=== PATIENT | male | born 1965 | race African-American/Black ===

== ENCOUNTER 2017-03-28 13:31 | Inpatient (IN) | payer OTHER ==
[~2017-03-28] VITALS: Ht 195.6 cm; Wt 72.5 kg
[2017-03-28 13:48] VITALS: BP 114/102; PULSE 98; RESP 18; TEMP 98.7; O2SAT 95
[2017-03-28 14:22] LABS: BASOPHIL # 0.1 TH/MM3 (0-0.2); BASOPHIL % 0.9 % (0.0-2.0); EOSINOPHIL % 0.4 % (0.0-4.0); HEMATOCRIT 41.4 % (39.0-51.0); HEMOGLOBIN 14.5 GM/DL (13.0-17.0); LYMPH % 28.8 % (9.0-44.0); MEAN CELL VOLUME 96.8 FL (80.0-100.0); MEAN CORPUSCULAR HEMOGLOBIN 33.9 PG (27.0-34.0); MEAN PLATELET VOLUME 6.7 FL (7.0-11.0); MONO % 12.6 % (0.0-8.0); MONOCYTE # 0.9 TH/MM3 (0-0.9); NEUT % 57.3 % (16.0-70.0); PLATELET COUNT 127 TH/MM3 (150-450); RED BLOOD COUNT 4.28 MIL/MM3 (4.50-5.90); RED CELL DISTRIBUTION WIDTH 15.8 % (11.6-17.2)
--- NOTE | 2017-03-28 15:26 | PD ---
HPI Chief Complaint: Psychiatric Symptoms Time Seen by Provider: 15:26 Travel History International Travel<30 days: No Contact w/Intl Traveler<30days: No Traveled to known affect area: No History of Present Illness HPI 51-year-old -[place] male brought in under the [place] act with suicidal ideation. Patient states he had a seizure on September 04 of this past year and has since been out of work. Patient has history of bipolar disorder states he has been unable to take any of his meds secondary to being out of work due to the seizure. Patient was hospitalized during that time for 6 days. He was supposed to follow-up with a neurologist but never did due to his lack of funds and insurance. Patient now is complaining of left-sided head, facial, and neck pain. He states he probably has a dental abscess. Patient states he has not slept for several weeks, and complains of generalized fatigue and does not feel he can take it anymore. Patient denies any specific neurological deficits other than his headache. Patient states he has felt feverish off and on for the past week. Patient denies difficulty swallowing. And has had bilateral ear pain. He denies sinus tenderness to palpation [facility] Social History Alcohol Use: Yes Tobacco Use: Yes Substance Use: Yes Allergies-Medications (Allergen,Severity, Reaction): Coded Allergies: No Known Allergies (Unverified , 03/28/17) Reported Meds & Prescriptions Reported Meds & Active Scripts Active Reported Seroquel (Quetiapine Fumarate) 300 Mg Tab 300 Mg PO DAILY Review of Systems Except as stated in HPI: all other systems reviewed are Neg General / Constitutional: Positive: Fever (Reports off and on for 2 weeks.) Eyes: No: Diploplia, Blurred Vision, Photophobia, Drainage, Redness, Foreign Body Sensation, Pain, Tearing, Blind Spots, Visual changes, Blindness HENT: Positive: Headaches, Congestion, Dental Difficulties, Earache, No: Vertigo, Lightheadedness, Sore Throat, Rhinitis, Rhinorrhea, Nosebleed, Neck Stiffness, Neck Pain, Gingival Bleeding, Ear Discharge Cardiovascular: No: Chest Pain or Discomfort Respiratory: No: Cough, Shortness of Breath, Wheezing Gastrointestinal: No: Nausea, Vomiting, Diarrhea, Abdominal Pain Genitourinary: No: Dysuria Musculoskeletal: No: Pain Skin: No Rash Neurologic: No: Weakness Psychiatric: Positive: Depression, Suicidal Ideations, Mood Disorder, No: Anxiety, Substance Abuse, Homicidal Ideation Endocrine: No: Polydipsia Hematologic/Lymphatic: No: Easy Bruising Physical Exam Narrative GENERAL: Patient appears somewhat anxious and pressured speech. He appears in moderate discomfort. SKIN: Warm and dry. Normal color. Normal turgor. No rash. HEAD: Atraumatic. Normocephalic. EYES: Pupils equal and round. No scleral icterus. No injection or drainage. ENT: No nasal bleeding or discharge. Mucous membranes pink and moist. No obvious swelling. Pharynx is clear. Airways patent. No Bay's angina. Patient is very poor dental health, with multiple missing teeth and tenderness with palpation along the trigeminal nerve root. TMs are clear bilaterally. No sinus tenderness to palpation. NECK: Trachea midline. Supple and nontender. CARDIOVASCULAR: Regular rate and rhythm. RESPIRATORY: No accessory muscle use. Clear to auscultation. Breath sounds equal bilaterally. GASTROINTESTINAL: Abdomen soft, non-tender, nondistended. Hepatic and splenic margins not palpable. MUSCULOSKELETAL: Extremities without clubbing, cyanosis, or edema. No obvious deformities. NEUROLOGICAL: Awake and alert. No obvious cranial nerve deficits. Motor grossly within normal limits. Five out of 5 muscle strength in the arms and legs. Normal speech. PSYCHIATRIC: Appropriate mood and affect; insight and judgment normal. Data Data Last Documented VS Vital Signs Date Time Temp Pulse Resp B/P (MAP) Pulse Ox O2 Delivery O2 Flow Rate FiO2 03/28/17 17:12 16 03/28/17 15:45 98.1 78 156/100 (118) 98 Room Air Orders Orders Complete Blood Count With Diff (03/28/17 13:51) Comprehensive Metabolic Panel (03/28/17 13:51) Psych Screen (03/28/17 13:51) Drug Screen, Random Urine (03/28/17 13:51) Alcohol (Ethanol) (03/28/17 13:51) Ct Brain W/O Iv Contrast(Rout) (03/28/17 15:36) Iv Access Insert/Monitor (03/28/17 15:36) Ecg Monitoring (03/28/17 15:36) Oximetry (03/28/17 15:36) Morphine Inj (Morphine Inj) (03/28/17 15:45) Ondansetron Inj (Zofran Inj) (03/28/17 15:45) Ampicillin-Sulbactam Inj (Unasyn Inj) (03/28/17 15:45) Sodium Chlor 0.9% 1000 Ml Inj (Ns 1000 M (03/28/17 15:36) Sodium Chloride 0.9% Flush (Ns Flush) (03/28/17 15:45) Ketorolac Inj (Toradol Inj) (03/28/17 15:45) Labs Laboratory Tests Test 03/28/17 14:00 03/28/17 14:20 White Blood Count 7.0 TH/MM3 Red Blood Count 4.28 MIL/MM3 Hemoglobin 14.5 GM/DL Hematocrit 41.4 % Mean Corpuscular Volume 96.8 FL Mean Corpuscular Hemoglobin 33.9 PG Mean Corpuscular Hemoglobin Concent 35.0 % Red Cell Distribution Width 15.8 % Platelet Count 127 TH/MM3 Mean Platelet Volume 6.7 FL Neutrophils (%) (Auto) 57.3 % Lymphocytes (%) (Auto) 28.8 % Monocytes (%) (Auto) 12.6 % Eosinophils (%) (Auto) 0.4 % Basophils (%) (Auto) 0.9 % Neutrophils # (Auto) 4.0 TH/MM3 Lymphocytes # (Auto) 2.0 TH/MM3 Monocytes # (Auto) 0.9 TH/MM3 Eosinophils # (Auto) 0.0 TH/MM3 Basophils # (Auto) 0.1 TH/MM3 CBC Comment DIFF FINAL Differential Comment Blood Urea Nitrogen 4 MG/DL Creatinine 0.97 MG/DL Random Glucose 110 MG/DL Total Protein 8.5 GM/DL Albumin 3.4 GM/DL Calcium Level 8.7 MG/DL Alkaline Phosphatase 68 U/L Aspartate Amino Transf (AST/SGOT) 51 U/L Alanine Aminotransferase (ALT/SGPT) 22 U/L Total Bilirubin 0.3 MG/DL Sodium Level 137 MEQ/L Potassium Level 4.1 MEQ/L Chloride Level 105 MEQ/L Carbon Dioxide Level 23.4 MEQ/L Anion Gap 9 MEQ/L Estimat Glomerular Filtration Rate 82 ML/MIN Ethyl Alcohol Level 356 MG/DL Urine Opiates Screen NEG Urine Barbiturates Screen NEG Urine Amphetamines Screen NEG Urine Benzodiazepines Screen NEG Urine Cocaine Screen NEG Urine Cannabinoids Screen POS MDM Medical Decision Making Medical Screen Exam Complete: Yes Emergency Medical Condition: Yes Medical Record Reviewed: Yes Differential Diagnosis Reported history of seizure disorder. Bipolar disorder. Moran act. Suicidal ideation. Dental pain. Dental abscess. Headache. Narrative Course Patient appears in discomfort but medically stable at time of exam. CBC is unremarkable. Chemistry shows BUN of 4, GFR 82, random glucose 110, AST is 51, total protein 2.5 otherwise unremarkable. Toxicology is positive for marijuana and alcohol level is 356. CT scan of the head is ordered to rule out intracranial process versus abscess. This is negative for acute process. IV access is obtained the patient is given 1000 mL normal saline bolus as well as 3 g Unasyn IV, as well as 2 mg morphine IV and 4 mg Zofran IV. Patient is medically cleared for psychiatric evaluation. Diagnosis Primary Impression: Pain due to dental caries Additional Impression: Medical clearance for psychiatric admission Disposition: 07 AGAINST MEDICAL ADVICE Condition: Stable Kike Morales Mar 28, 2017 15:26
[2017-03-28 15:28] LABS: ALBUMIN 3.4 GM/DL (3.4-5.0); ALKALINE PHOSPHATASE 68 U/L (45-117); ALT (GPT) 22 U/L (12-78); AST (GOT) 51 U/L (15-37); BICARBONATE 23.4 MEQ/L (21.0-32.0); BLOOD UREA NITROGEN 4 MG/DL (7-18); CALCIUM 8.7 MG/DL (8.5-10.1); CHLORIDE 105 MEQ/L (98-107); CREATININE 0.97 MG/DL (0.60-1.30); GLOMERULAR FILTRATION RATE 82 ML/MIN (>89); GLUCOSE,RANDOM 110 MG/DL (74-106); SODIUM (NA) 137 MEQ/L (136-145); TOTAL BILIRUBIN ADULT 0.3 MG/DL (0.2-1.0); TOTAL PROTEIN 8.5 GM/DL (6.4-8.2)
[2017-03-28] MEDS ORDERED: SODIUM CHLOR 0.9% 1000 ML INJ 1,000 ML IV SCH (15:36)
[2017-03-28 15:45] VITALS: BP 156/100; PULSE 78; PULSE 82; RESP 18; TEMP 98.1; O2SAT 98
[2017-03-28] MEDS ORDERED: AMPICILLIN-SULBACTAM INJ 3 GM in SODIUM CHLORIDE 0.9% INJ 100 ML IV ONE (15:45)
[2017-03-28] MEDS ORDERED: SODIUM CHLORIDE 0.9% FLUSH 10 ML FLUSH IV FLUSH PRN (15:45)
[2017-03-28] MEDS ORDERED: KETOROLAC TROMETHAMINE 30 MG/ML (IVP) VIAL IVP ONE (15:45)
[2017-03-28] MEDS ORDERED: MORPHINE SULFATE 4 MG/ML INJ IV PUSH ONE (15:45)
[2017-03-28] MEDS ORDERED: ONDANSETRON HCL 4 MG/2 ML VIAL IVP ONE (15:45)
[2017-03-28] MEDS ORDERED: SERO300T PO (16:35)
--- NOTE | 2017-03-28 16:37 | RADRPT ---
EXAM DATE/TIME: 03/28/2017 16:12 [facility] COMPARISON: No previous studies available for comparison. INDICATIONS : Patient complains of headache. RADIATION DOSE: 56.35 CTDIvol (mGy) MEDICAL HISTORY : Seizures. SURGICAL HISTORY : None. ENCOUNTER: Initial ACUITY: 1 day PAIN SCALE: 10/10 LOCATION: cranial TECHNIQUE: Multiple contiguous axial images were obtained of the head. Using automated exposure control and adj ustment of the mA and/or kV according to patient size, radiation dose was kept as low as reasonably a chievable to obtain optimal diagnostic quality images. DICOM format image data is available electro nically for review and comparison. FINDINGS: CEREBRUM: The ventricles are normal for age. No evidence of midline shift, mass lesion, hemorrhage or acute in farction. No extra-axial fluid collections are seen. POSTERIOR FOSSA: The cerebellum and brainstem are intact. The 4th ventricle is midline. The cerebellopontine angle i s unremarkable. EXTRACRANIAL: The visualized portion of the orbits is intact. SKULL: The calvaria is intact. No evidence of skull fracture. CONCLUSION: Normal examination. Abelardo Everett Jr., MD on March 28, 2017 at 16:33 Board Certified Radiologist. This report was verified electronically.
[2017-03-28 18:35] VITALS: BP 146/72; PULSE 78; RESP 18; O2SAT 98
[2017-03-28] MEDS ORDERED: LORazepam 2 MG/ML VIAL IV PUSH PRN ×4 (20:00)
[2017-03-28] MEDS ORDERED: FLUMAZENIL 0.5 MG/5 ML VIAL IV PUSH PRN (20:00)
[2017-03-28] MEDS ORDERED: LORazepam 1 MG TAB PO PRN (20:00)
[2017-03-28] MEDS: LORazepam 2 MG TAB PO PRN (21:36)
[2017-03-29] MEDS ORDERED: AMOX500C PO (00:24)
[2017-03-29] MEDS ORDERED: DICL50TA3 PO (00:24)
[2017-03-29] MEDS ORDERED: IBUPROFEN 600 MG TAB PO ONE (00:30)
[2017-03-29] MEDS ORDERED: AMOXICILLIN (TRIHYDRATE) 500 MG CAP PO ONE (00:30)
[2017-03-29] MEDS ORDERED: AMOXICILLIN (TRIHYDRATE) 250 MG CAP PO ONE (00:45)
[2017-03-29 01:04] VITALS: BP 148/90; PULSE 101; RESP 18; O2SAT 96
[2017-03-29 05:57] VITALS: BP 158/88; PULSE 88; RESP 18; O2SAT 98
[2017-03-29] MEDS: IBUPROFEN 600 MG TAB PO SCH ×3 (06:00→18:43)
[2017-03-29 08:00] VITALS: BP 167/107; PULSE 93; RESP 18; TEMP 98.4; O2SAT 97
[2017-03-29] MEDS ORDERED: AMOXICILLIN (TRIHYDRATE) 500 MG CAP PO SCH (09:00)
[2017-03-29] MEDS: AMOXICILLIN (TRIHYDRATE) 250 MG CAP PO SCH ×2 (10:08→19:18)
[2017-03-29] MEDS: LORazepam 2 MG TAB PO PRN ×2 (10:31→22:25)
[2017-03-29 11:19] VITALS: BP 137/84; PULSE 92; RESP 18; TEMP 98.8; O2SAT 98
[2017-03-29] MEDS ORDERED: ACETAMINOPHEN/HYDROcodone 325 MG/5 MG TAB PO ONE (11:45)
[2017-03-29 18:11] VITALS: BP 161/91; PULSE 84; RESP 18; O2SAT 99
[2017-03-29] MEDS ORDERED: LORazepam 2 MG/ML VIAL IM PRN (20:45)
[2017-03-29] MEDS ORDERED: LORazepam 1 MG TAB PO PRN (20:45)
[2017-03-29] MEDS ORDERED: MAGNESIUM HYDROXIDE SUSP 30 ML CUP PO PRN (20:45)
[2017-03-29] MEDS ORDERED: ALUMINUM/MAGNESIUM/SIMETH 30 ML CUP PO PRN (20:45)
[2017-03-29] MEDS: REMOVE OLD NICOTINE PATCH T-DERMAL SCH (21:00)
[2017-03-29] MEDS: ACETAMINOPHEN 325 MG TAB PO PRN (22:32)
[2017-03-29 23:14] VITALS: BP 153/105; PULSE 78; RESP 16; TEMP 100; O2SAT 95
[2017-03-30] MEDS: AMOXICILLIN (TRIHYDRATE) 250 MG CAP PO SCH (01:21)
[2017-03-30] MEDS: IBUPROFEN 600 MG TAB PO SCH ×4 (01:21→17:47)
[2017-03-30 05:51] VITALS: BP 130/88; PULSE 81; RESP 16; TEMP 98.5; O2SAT 94
[2017-03-30 06:51] LABS: BICARBONATE 28.3 MEQ/L (21.0-32.0); BLOOD UREA NITROGEN 5 MG/DL (7-18); CALCIUM 8.9 MG/DL (8.5-10.1); CHLORIDE 100 MEQ/L (98-107); CHOLESTEROL 212 MG/DL (120-200); CREATININE 0.89 MG/DL (0.60-1.30); GLOMERULAR FILTRATION RATE 110 ML/MIN (>89); GLUCOSE,RANDOM 82 MG/DL (74-106); SODIUM (NA) 135 MEQ/L (136-145)
[2017-03-30 07:01] LABS: CHOLESTEROL/ HDL RATIO 1.89 RATIO; FREE T4 1.27 NG/DL (0.76-1.46); LDL CHOLESTEROL 82 MG/DL (0-99); TRIGLYCERIDES 91 MG/DL (42-150)
[2017-03-30] MEDS ORDERED: POTASSIUM CHLORIDE 10 MEQ CONTROLLED RELEASE TAB PO ONE (07:45)
[2017-03-30] MEDS ORDERED: QUEtiapine FUMARATE 300 MG TAB PO SCH (09:00)
[2017-03-30] MEDS: AMOXICILLIN (TRIHYDRATE) 500 MG CAP PO SCH ×2 (09:00→13:00)
[2017-03-30] MEDS: DICLOFENAC SODIUM 50 MG DELAYED RELEASE TAB PO SCH ×2 (09:44→13:51)
[2017-03-30] MEDS: NICOTINE 21 MG/24 HR PATCH T-DERMAL SCH (09:49)
[2017-03-30] MEDS ORDERED: hydrOXYzine HCL 50 MG TAB PO PRN (12:00)
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
--- NOTE | 2017-03-30 15:42 | PD.CONS ---
HPI Service [facility] Hospitalists Consult Requested By Psychiatric services Reason for Consult Medical management Primary Care Physician No Primary Care Physician Diagnoses: History of Present Illness This is a 51-year-old -[place] male with past medical history significant for hypertension and history of seizure September 04 of last year who presented to [facility] ED under [place] act for suicidal ideation and has been admitted to the inpatient psychiatric unit. Hospitalist services have been consulted for medical management. Patient is complaining of left-sided tooth pain which has improved since receiving antibiotics since his admission. He denies any fever or chills. He also reports a mild headache. He denies any chest pain or shortness of breath. He denies any nausea, vomiting or abdominal pain. Patient states he had a seizure while at work last year and was supposed to follow-up with a neurologist but was unable to due to losing his job and insurance benefits. He states that he continued to have seizure activity for about a month but has not had any since. He received care for the seizure at [facility]. He was not discharged on any seizure medication. He states he was never told why he had the seizure. Review of Systems Except as stated in HPI: all other systems reviewed are Neg Past Family Social History Allergies: Coded Allergies: No Known Allergies (Unverified , 03/28/17) Past Medical History Hypertension History of seizures Past Surgical History Appendectomy Reported Medications Seroquel (Quetiapine Fumarate) 300 Mg Tab 300 Mg PO DAILY Active Ordered Medications Current Medications Medications (Trade) Dose Ordered Sig/Ana Cristina Route Start Time Stop Time Status Last Admin (Romazicon Inj) 0.2 mg Q1M PRN IV PUSH 03/28/17 20:00 (Ativan) 1 mg Q4H PRN PO 03/28/17 20:00 03/29/17 03:09 (Ativan Inj) 1 mg Q4H PRN IV PUSH 03/28/17 20:00 (Ativan) 2 mg Q2H PRN PO 03/28/17 20:00 03/29/17 22:25 (Ativan Inj) 2 mg Q2H PRN IV PUSH 03/28/17 20:00 (Ativan Inj) 2 mg Q1H PRN IV PUSH 03/28/17 20:00 (Ativan Inj) 2 mg Q15M PRN IV PUSH 03/28/17 20:00 (Motrin) 600 mg Q6HR PO 03/29/17 06:00 03/30/17 13:52 (Tylenol) 650 mg Q4H PRN PO 03/29/17 20:45 03/29/17 22:32 (Milk Of Magnesia Liq) 30 ml DAILY PRN PO 03/29/17 20:45 (Mag-Al Plus Susp Liq) 30 ml Q6H PRN PO 03/29/17 20:45 (Habitrol 21 Mg Patch.24 Hr) 1 patch DAILY T-DERMAL 03/30/17 09:00 03/30/17 09:49 Miscellaneous Information 1 HS T-DERMAL 03/29/17 21:00 (Trimox) 500 mg TID PO 03/30/17 09:00 03/30/17 13:00 (Voltaren Dr) 50 mg TID PO 03/30/17 09:00 03/30/17 13:51 (Atarax) 50 mg Q6H PRN PO 03/30/17 12:00 (SEROquel) 50 mg HS PO 03/30/17 21:00 (Vitamin B1) 100 mg DAILY PO 03/31/17 09:00 (Folate) 1 mg DAILY PO 03/31/17 09:00 Family History Hypertension, coronary artery disease, cancer Social History Patient reports tobacco use of a pack per day starting when he was a teenager. He admits to daily alcohol use of 4-6 beers a day. He admits to marijuana use. Denies any IV drug or cocaine use. Physical Exam Vital Signs Vital Signs Date Time Temp Pulse Resp B/P (MAP) Pulse Ox O2 Delivery O2 Flow Rate FiO2 03/30/17 05:51 98.5 81 16 130/88 (102) 94 03/29/17 23:14 100.0 78 16 153/105 (121) 95 03/29/17 19:32 03/29/17 18:11 84 18 161/91 (114) 99 Room Air Physical Exam GENERAL: This is a well-nourished, well-developed -[place] patient, in no apparent distress. Awake and alert. Calm and pleasant. SKIN: No rashes, ecchymoses or lesions. Cool and dry. HEAD: Atraumatic. Normocephalic. No temporal or scalp tenderness. EYES: Pupils equal round and reactive. Extraocular motions intact. No scleral icterus. No injection or drainage. ENT: Nose without bleeding or purulent drainage. Throat without erythema, tonsillar hypertrophy or exudate. Uvula midline. Airway patent. Extremely poor dentition noted. Tenderness to palpation over left lower jaw. NECK: Trachea midline. No lymphadenopathy. Supple, nontender, no meningeal signs. CARDIOVASCULAR: Tachycardic without murmurs, gallops, or rubs. RESPIRATORY: Coarse breath sounds with diffuse wheezing. GASTROINTESTINAL: Abdomen soft, non-tender, nondistended. No hepato-splenomegaly , or palpable masses. No guarding. MUSCULOSKELETAL: Extremities without clubbing, cyanosis, or edema. No joint tenderness, effusion, or edema noted. No calf tenderness. NEUROLOGICAL: Awake and alert. Cranial nerves II through XII grossly intact. Motor and sensory grossly within normal limits. Five out of 5 muscle strength in all muscle groups. Normal speech. Laboratory Laboratory Tests Test 03/29/17 17:00 03/30/17 05:00 Stool C. difficile Toxin (PCR) NEGATIVE Stl C. difficile Toxin Epiderm 027 PRESUMPTIVE NEGATIVE Blood Urea Nitrogen 5 Creatinine 0.89 Random Glucose 82 Calcium Level 8.9 Sodium Level 135 Potassium Level 3.4 Chloride Level 100 Carbon Dioxide Level 28.3 Anion Gap 7 Estimat Glomerular Filtration Rate 110 Triglycerides Level 91 Cholesterol Level 212 LDL Cholesterol 82 HDL Cholesterol 112.0 Cholesterol/HDL Ratio 1.89 Free Thyroxine 1.27 Thyroid Stimulating Hormone 3rd Gen 1.850 Result Diagram: 03/28/17 1400 03/30/17 0500 Imaging Last Impressions Head CT 03/28/17 1536 Signed Impressions: Service Date/Time: Tuesday, March 28, 2017 16:12 - CONCLUSION: Normal examination. Abelardo Everett Jr., MD Assessment and Plan Assessment and Plan 51-year-old -[place] male with past medical history significant for hypertension and history of seizure September 04 of last year who presented to [facility] ED under [place] act for suicidal ideation and has been admitted to the inpatient psychiatric unit. Hospitalist services have been consulted for medical management. Suicidal ideation, under [place] act Depression Medical management per psychiatric team Dental abscess Extremely poor dentition d/c amoxicillin, start augmentin Recommend patient follow-up with dentist as outpatient Monitor Suspected COPD exacerbation Ongoing tobaccoism Obtain chest x-ray DuoNeb scheduled Continue to monitor respiratory status Discussed smoking cessation Hypertension Currently controlled off of medications Clonidine as needed Monitor BP and adjust treatment accordingly Hypokalemia PO repletion ordered A.m. labs to monitor response History of seizures, specifics unknown ?EtOH withdrawal seizure Patient reports hospitalization August of last year at [facility]. Have requested medical records for review. Patient not prescribed any antiseizure medication at the time of his discharge No recent seizure activity Seizure precautions Alcohol abuse [facility] protocol Monitor for signs and symptoms of withdrawal Thiamine/folate/multivitamin daily Thrombocytosis mild check B12 and folate levels monitor DVT prophylaxis Patient is ambulatory Thank you very kindly for this consultation. Will follow along with you. Discussed Condition With Patient, Che Donaldson Mar 30, 2017 15:42
[2017-03-30 16:15] LABS: HEMOGLOBIN A1C 5.6 % (4.3-6.0)
[2017-03-30 17:13] VITALS: PULSE 86; RESP 17; TEMP 98.4; O2SAT 99
--- NOTE | 2017-03-30 20:22 | RADRPT ---
EXAM DATE/TIME: 03/30/2017 19:52 [place] COMPARISON: No previous studies available for comparison. INDICATIONS : Chest pain and shortness of breath. MEDICAL HISTORY : Seizures, Chronic bronchitis. SURGICAL HISTORY : None. ENCOUNTER: Initial ACUITY: 2 days PAIN SCORE: 8/10 LOCATION: Bilateral chest FINDINGS: PA and lateral views of the chest demonstrate the lungs to be symmetrically aerated without evidence of mass, infiltrate or effusion. The cardiomediastinal contours are unremarkable. Osseous structure s are intact. CONCLUSION: No acute disease. Mateo Amaro MD on March 30, 2017 at 20:20 Board Certified Radiologist. This report was verified electronically.
[2017-03-30] MEDS ORDERED: QUEtiapine FUMARATE 100 MG TAB PO SCH (21:00)
[2017-03-30] MEDS: REMOVE OLD NICOTINE PATCH T-DERMAL SCH (21:13)
[2017-03-30] MEDS: RESP: ALBUTEROL 2.5 MG/IPRATROPIUM 0.5 MG NEB (SCH) NEB (21:55)
[2017-03-30] MEDS: AMOXICILLIN/CLAVULANATE K 500 MG TAB PO SCH (22:00)
[2017-03-31] MEDS: IBUPROFEN 600 MG TAB PO SCH
[2017-03-31 05:59] VITALS: BP 124/82; PULSE 76; RESP 18; TEMP 98.4; O2SAT 98
[2017-03-31] MEDS: AMOXICILLIN/CLAVULANATE K 500 MG TAB PO SCH ×3 (06:00→22:00)
[2017-03-31] MEDS: RESP: ALBUTEROL 2.5 MG/IPRATROPIUM 0.5 MG NEB (SCH) NEB ×2 (07:38→12:40)
[2017-03-31] MEDS: NICOTINE 21 MG/24 HR PATCH T-DERMAL SCH (09:00)
[2017-03-31] MEDS: FOLIC ACID 1 MG TAB PO SCH (09:21)
[2017-03-31] MEDS: THIAMINE HCL 100 MG TAB PO SCH (09:21)
[2017-03-31] MEDS: MULTIVITAMIN TAB PO SCH (09:21)
[2017-03-31] MEDS: ACETAMINOPHEN 325 MG TAB PO PRN (09:23)
[2017-03-31 10:04] LABS: AUTOMATED NEUTROPHIL # 2.3 TH/MM3 (1.8-7.7); BASOPHIL % 0.7 % (0.0-2.0); EOSINOPHIL # 0.2 TH/MM3 (0-0.4); EOSINOPHIL % 3.6 % (0.0-4.0); HEMATOCRIT 38.6 % (39.0-51.0); HEMOGLOBIN 13.1 GM/DL (13.0-17.0); LYMPH % 32.4 % (9.0-44.0); LYMPHOCYTE # 1.6 TH/MM3 (1.0-4.8); MEAN CELL VOLUME 97.1 FL (80.0-100.0); MEAN CORPUSCULAR HEMOGLOBIN 32.9 PG (27.0-34.0); MEAN CORPUSCULAR HGB CONC 33.9 % (32.0-36.0); MEAN PLATELET VOLUME 7.7 FL (7.0-11.0); MONO % 16.1 % (0.0-8.0); MONOCYTE # 0.8 TH/MM3 (0-0.9); NEUT % 47.2 % (16.0-70.0); PLATELET COUNT 99 TH/MM3 (150-450); RED BLOOD COUNT 3.97 MIL/MM3 (4.50-5.90); RED CELL DISTRIBUTION WIDTH 15.3 % (11.6-17.2); WHITE BLOOD COUNT 4.8 TH/MM3 (4.0-11.0)
[2017-03-31 10:53] LABS: ALBUMIN 2.7 GM/DL (3.4-5.0); ALKALINE PHOSPHATASE 65 U/L (45-117); ALT (GPT) 73 U/L (12-78); AST (GOT) 112 U/L (15-37); BICARBONATE 29.7 MEQ/L (21.0-32.0); BLOOD UREA NITROGEN 13 MG/DL (7-18); CALCIUM 9.3 MG/DL (8.5-10.1); CHLORIDE 100 MEQ/L (98-107); CREATININE 1.04 MG/DL (0.60-1.30); GLOMERULAR FILTRATION RATE 92 ML/MIN (>89); GLUCOSE,RANDOM 89 MG/DL (74-106); SODIUM (NA) 135 MEQ/L (136-145); TOTAL BILIRUBIN ADULT 0.4 MG/DL (0.2-1.0); TOTAL PROTEIN 7.3 GM/DL (6.4-8.2)
--- NOTE | 2017-03-31 12:15 | HHI.PYPN ---
Subjective Chief Complaint: Depression, SI Remarks Patient seen and examined with nurse. Chart reviewed. CIWA max last 24 hours = 0. Case discussed with nursing staff. Case discussed in treatment team. On my examination today, the patient reports that he was in a bad mood this morning but this is starting to improve. He reports hearing voices calling his name but denies any other hallucinatory material. Sleep remains poor. He endorses vague suicidal ideation. Denies side effects from medications. Complains of dental pain but otherwise has no physical complaints. He would like to titrate Seroquel to improve sleep quality and notes that he has taken as much as 300 mg at bedtime in the past. Review of Systems Except as stated in HPI: all other systems reviewed are Neg Mental Status Examination Appearance: Disheveled Consciousness: Alert Orientation: x4 Motor Activity: Other (no motor abnormalities noted) Speech: Unremarkable Language: Adequate Fund of Knowledge: Adequate Attention and Concentration: Adequate Memory: Unremarkable Mood: Other (remains a little dysphoric) Affect: Blunt Thought Process & Associations: Intact Thought Content: Appropriate Hallucination Type: Auditory (as noted above. No CAH.) Delusion Type: None Suicidal Ideation: Yes (vague) Suicidal Plan: No Suicidal Intention: No (no reported urge to hurt himself on the inpatient psychiatric unit) Homicidal Ideation: No Homicidal Plan: No Homicidal Intention: No Insight: Fair Judgment: Impulsive Mental Status Exam Remarks no signs of withdrawal noted. Results Labs Test 03/31/17 09:47 White Blood Count 4.8 TH/MM3 Red Blood Count 3.97 MIL/MM3 Hemoglobin 13.1 GM/DL Hematocrit 38.6 % Mean Corpuscular Volume 97.1 FL Mean Corpuscular Hemoglobin 32.9 PG Mean Corpuscular Hemoglobin Concent 33.9 % Red Cell Distribution Width 15.3 % Platelet Count 99 TH/MM3 Mean Platelet Volume 7.7 FL Neutrophils (%) (Auto) 47.2 % Lymphocytes (%) (Auto) 32.4 % Monocytes (%) (Auto) 16.1 % Eosinophils (%) (Auto) 3.6 % Basophils (%) (Auto) 0.7 % Neutrophils # (Auto) 2.3 TH/MM3 Lymphocytes # (Auto) 1.6 TH/MM3 Monocytes # (Auto) 0.8 TH/MM3 Eosinophils # (Auto) 0.2 TH/MM3 Basophils # (Auto) 0.0 TH/MM3 CBC Comment AUTO DIFF Differential Comment AUTO DIFF CONFIRMED Platelet Estimate LOW Platelet Morphology Comment ENLARGED Blood Urea Nitrogen 13 MG/DL Creatinine 1.04 MG/DL Random Glucose 89 MG/DL Total Protein 7.3 GM/DL Albumin 2.7 GM/DL Calcium Level 9.3 MG/DL Alkaline Phosphatase 65 U/L Aspartate Amino Transf (AST/SGOT) 112 U/L Alanine Aminotransferase (ALT/SGPT) 73 U/L Total Bilirubin 0.4 MG/DL Sodium Level 135 MEQ/L Potassium Level 4.1 MEQ/L Chloride Level 100 MEQ/L Carbon Dioxide Level 29.7 MEQ/L Anion Gap 5 MEQ/L Estimat Glomerular Filtration Rate 92 ML/MIN Labs reviewed. Worsened thrombocytopenia noted, although this is perhaps dilutional as all cell lines decreased. Vitals/IOs Vital Signs Date Time Temp Pulse Resp B/P (MAP) Pulse Ox O2 Delivery O2 Flow Rate FiO2 03/31/17 05:59 98.4 76 18 124/82 (96) 98 03/29/17 18:11 Room Air Intake and Output 03/31/17 03/31/17 04/01/17 08:00 16:00 00:00 Intake Total 240 ml Balance 240 ml Assessment & Plan Problem List: (1) Adjustment disorder with mixed anxiety and depressed mood ICD Codes: F43.23 - Adjustment disorder with mixed anxiety and depressed mood (2) Alcohol dependence ICD Codes: F10.20 - Alcohol dependence, uncomplicated Assessment & Plan Titrate Seroquel over the weekend to target ongoing symptoms, interval dose target 200 mg at bedtime. R/B/A for med change discussed with patient. Hospitalist input noted and appreciated. Continue other medications and care as ordered. Justification for Cont. Inpt. Medication changes. Monitoring for impairment and safety. Risk for decompensation and less restrictive environment. Discharge Planning Pending psychiatric stabilization. Request HC Surrog/Guard Advoc?: No Andres Dempsey MD Mar 31, 2017 12:15
--- NOTE | 2017-03-31 14:40 | PD.TTN ---
Patient Problems 1. Discharge planning 2. Medication compliance 3. Knowledge deficit 4. Lack of coping skills Progress Toward Goals Provider Present: Dr. Isha Dempsey Provider Input: 03/31/17 patient was admitted yesterday and started on Seroquel Psychiatric Counselors Present: Tamara Aviles LCSW, Dhiraj Traylor Jr., [facility] Psych Therapist Input: 03/31/17 patient is new Group Spec/RT/OT/PICHARDO Present: KYLEE Eisenberg Group Spec/RT/OT/PICHARDO Input: 03/31/15 has not attended any groups yet Tamara Aviles LCSW Mar 31, 2017 14:40
[2017-03-31] MEDS ORDERED: RESP: ALBUTEROL 2.5 MG/IPRATROPIUM 0.5 MG NEB (PRN) NEB (14:45)
--- NOTE | 2017-03-31 14:51 | HHI.PR ---
Subjective Remarks Follow-up on patient with dental abscess. Patient seen and examined. Patient complains of pain with chewing despite being on soft diet. He is requesting to have his teeth removed. Discussed with patient we do not have those services available at our facility and he will need follow-up with a dentist as an outpatient. He denies any fever or chills. Denies any chest pain or shortness of breath. Denies any anxiety, diarrhea, auditory/visual hallucinations or other signs/symptoms of withdrawal. Objective Vitals Vital Signs Date Time Temp Pulse Resp B/P (MAP) Pulse Ox O2 Delivery O2 Flow Rate FiO2 03/31/17 05:59 98.4 76 18 124/82 (96) 98 03/30/17 17:13 98.4 86 17 99 I/O 03/30/17 03/30/17 03/30/17 03/31/17 03/31/17 03/31/17 07:00 15:00 23:00 07:00 15:00 23:00 Intake Total 480 ml Balance 480 ml Intake Oral 480 ml Result Diagram: 03/31/17 0947 03/31/17 0947 Imaging Last Impressions Chest X-Ray 03/30/17 0000 Signed Impressions: Service Date/Time: March 19:52 - CONCLUSION: No acute disease. Mateo Amaro MD Head CT 03/28/17 1536 Signed Impressions: Service Date/Time: Tuesday, March 28, 2017 16:12 - CONCLUSION: Normal examination. Abelardo Everett Jr., MD Objective Remarks GENERAL: This is a well-nourished, well-developed -Spanish male patient , in no apparent distress. Awake and alert. Sitting up in bed. SKIN: Cool and dry. HEAD: Atraumatic. Normocephalic. EYES: Extraocular motions intact. No scleral icterus. No injection or drainage. ENT: Nose without bleeding or purulent drainage. Airway patent. Extremely poor dentition noted. Tenderness to palpation over left lower jaw. NECK: Trachea midline. CARDIOVASCULAR: Regular rate and rhythm without murmurs, gallops, or rubs. RESPIRATORY: Fair air entry. Clear to auscultation. GASTROINTESTINAL: Abdomen soft, non-tender, nondistended. MUSCULOSKELETAL: Extremities without clubbing, cyanosis, or edema. NEUROLOGICAL: Awake and alert. Cranial nerves II through XII grossly intact. Motor and sensory grossly intact bilateral upper and lower extremities. No focal neurologic findings appreciated. Normal speech. Medications and IVs Current Medications Medications (Trade) Dose Ordered Sig/Ana Cristina Route Start Time Stop Time Status Last Admin (Romazicon Inj) 0.2 mg Q1M PRN IV PUSH 03/28/17 20:00 (Ativan) 1 mg Q4H PRN PO 03/28/17 20:00 03/29/17 03:09 (Ativan Inj) 1 mg Q4H PRN IV PUSH 03/28/17 20:00 (Ativan) 2 mg Q2H PRN PO 03/28/17 20:00 03/29/17 22:25 (Ativan Inj) 2 mg Q2H PRN IV PUSH 03/28/17 20:00 (Ativan Inj) 2 mg Q1H PRN IV PUSH 03/28/17 20:00 (Ativan Inj) 2 mg Q15M PRN IV PUSH 03/28/17 20:00 (Tylenol) 650 mg Q4H PRN PO 03/29/17 20:45 03/31/17 09:23 (Milk Of Magnesia Liq) 30 ml DAILY PRN PO 03/29/17 20:45 (Mag-Al Plus Susp Liq) 30 ml Q6H PRN PO 03/29/17 20:45 (Habitrol 21 Mg Patch.24 Hr) 1 patch DAILY T-DERMAL 03/30/17 09:00 03/30/17 09:49 Miscellaneous Information 1 HS T-DERMAL 03/29/17 21:00 03/30/17 21:13 (Atarax) 50 mg Q6H PRN PO 03/30/17 12:00 (Vitamin B1) 100 mg DAILY PO 03/31/17 09:00 03/31/17 09:21 (Folate) 1 mg DAILY PO 03/31/17 09:00 03/31/17 09:21 (Duoneb Neb) 1 ampule Q6HR WHILE AWAKE NEB NEB 03/30/17 20:00 03/31/17 12:40 (Theragran) 1 tab DAILY PO 03/31/17 09:00 03/31/17 09:21 (Augmentin) 500 mg Q8HR PO 03/30/17 22:00 03/31/17 13:55 (Catapres) 0.1 mg Q6H PRN PO 03/30/17 15:45 (Baby Orajel 7.5% Oral Gel) 1 applic Q6H PRN OROPHARYNG 03/31/17 12:15 (SEROquel) 100 mg Taper HS PO 03/31/17 21:00 04/12/17 20:59 A/P Assessment and Plan 51-year-old -Spanish male with past medical history significant for hypertension and history of seizure September 04 of last year who presented to [facility] ED under [place] act for suicidal ideation and has been admitted to the inpatient psychiatric unit. Hospitalist services have been consulted for medical management. Suicidal ideation, under [place] act Depression Medical management per psychiatric team Dental abscess Extremely poor dentition Continue Augmentin Continue soft diet with lidocaine viscous used prior to meals Recommend patient follow-up with dentist as outpatient Monitor Suspected COPD exacerbation Ongoing tobaccoism Chest x-ray unremarkable, images reviewed by me [place] as needed Continue to monitor respiratory status Discussed smoking cessation Hypertension Currently controlled off of medications Clonidine as needed Monitor BP and adjust treatment accordingly Hypokalemia Resolved status post repletion History of seizures, specifics unknown ?EtOH withdrawal seizure Patient reports hospitalization August of last year at [facility]. Have requested medical records for review -not in chart, discussed with Ino BERTRAND who has not requested as of yet Patient not prescribed any antiseizure medication at the time of his discharge No recent seizure activity Seizure precautions Alcohol abuse [facility] protocol Monitor for signs and symptoms of withdrawal Thiamine/folate/multivitamin daily Transaminitis Suspect secondary to alcohol abuse AST trending up Avoid hepatotoxic agents Trend LFTs Thrombocytopenia downward trend No active bleeding Continue to monitor, repeat CBC for tomorrow Obtain PT/INR B12 and folate levels within normal limits, check MMA DVT prophylaxis Patient is ambulatory Che Pierce Mar 31, 2017 14:51
[2017-03-31] MEDS: LIDOCAINE VISCOUS 2% SOLN 15 ML UDC SWISH-SPIT SCH (17:00)
[2017-03-31 17:23] LABS: PROTHROMBIN TIME - PATIENT 9.7 SEC (9.8-11.6)
[2017-03-31] MEDS: cloNIDine HCL 0.1 MG TAB PO PRN (17:33)
[2017-03-31 18:00] VITALS: BP 164/111; PULSE 73; RESP 15; TEMP 98.2; O2SAT 99
[2017-03-31] MEDS: QUEtiapine FUMARATE 100 MG TAB PO SCH (21:00)
[2017-03-31] MEDS: REMOVE OLD NICOTINE PATCH T-DERMAL SCH (21:00)
--- NOTE | 2017-04-01 01:34 | EKG ---
Date Performed: 03/30/2017 Time Performed: 13:25:41 PTAGE: 51 years EKG: Sinus rhythm NORMAL ECG NO PREVIOUS TRACING DOCTOR: Hiwot Duenas Interpretating Date/Time 04/01/2017 01:31:41
[2017-04-01] MEDS: AMOXICILLIN/CLAVULANATE K 500 MG TAB PO SCH ×3 (05:48→22:00)
[2017-04-01 06:24] VITALS: BP 122/86; PULSE 16; RESP 16; TEMP 98.5; O2SAT 97
[2017-04-01] MEDS: LIDOCAINE VISCOUS 2% SOLN 15 ML UDC SWISH-SPIT SCH ×3 (08:00→17:00)
[2017-04-01] MEDS: NICOTINE 21 MG/24 HR PATCH T-DERMAL SCH (09:23)
[2017-04-01] MEDS: FOLIC ACID 1 MG TAB PO SCH (09:24)
[2017-04-01] MEDS: THIAMINE HCL 100 MG TAB PO SCH (09:24)
[2017-04-01] MEDS: MULTIVITAMIN TAB PO SCH (09:25)
[2017-04-01 10:50] LABS: AUTOMATED NEUTROPHIL # 2.3 TH/MM3 (1.8-7.7); BASOPHIL % 0.8 % (0.0-2.0); EOSINOPHIL # 0.2 TH/MM3 (0-0.4); EOSINOPHIL % 4.1 % (0.0-4.0); HEMATOCRIT 37.4 % (39.0-51.0); HEMOGLOBIN 12.9 GM/DL (13.0-17.0); LYMPH % 35.2 % (9.0-44.0); LYMPHOCYTE # 1.8 TH/MM3 (1.0-4.8); MEAN CELL VOLUME 96.8 FL (80.0-100.0); MEAN CORPUSCULAR HEMOGLOBIN 33.3 PG (27.0-34.0); MEAN CORPUSCULAR HGB CONC 34.4 % (32.0-36.0); MEAN PLATELET VOLUME 8.2 FL (7.0-11.0); MONO % 15.3 % (0.0-8.0); MONOCYTE # 0.8 TH/MM3 (0-0.9); NEUT % 44.6 % (16.0-70.0); PLATELET COUNT 118 TH/MM3 (150-450); RED BLOOD COUNT 3.87 MIL/MM3 (4.50-5.90); RED CELL DISTRIBUTION WIDTH 15.6 % (11.6-17.2); WHITE BLOOD COUNT 5.2 TH/MM3 (4.0-11.0)
[2017-04-01 11:11] LABS: ALBUMIN 2.7 GM/DL (3.4-5.0); AST (GOT) 64 U/L (15-37); BLOOD UREA NITROGEN 16 MG/DL (7-18); CALCIUM 9.5 MG/DL (8.5-10.1); CHLORIDE 102 MEQ/L (98-107); CREATININE 0.95 MG/DL (0.60-1.30); GLOMERULAR FILTRATION RATE 102 ML/MIN (>89); GLUCOSE,RANDOM 92 MG/DL (74-106); SODIUM (NA) 137 MEQ/L (136-145)
[2017-04-01 11:13] LABS: ALT (GPT) 59 U/L (12-78)
[2017-04-01 11:14] LABS: ALKALINE PHOSPHATASE 71 U/L (45-117); TOTAL BILIRUBIN ADULT 0.3 MG/DL (0.2-1.0); TOTAL PROTEIN 7.3 GM/DL (6.4-8.2)
--- NOTE | 2017-04-01 13:40 | HHI.PYPN ---
Subjective Chief Complaint: Depression, SI Remarks Patient was seen and case discussed with nursing. Patient is responding well to Seroquel and says his voices are gone away today. He does note them last night where he was feeling that somebody is calling him. Mood remains depressed but patient denies suicidal or homicidal ideation intent or plan. He is hopeful for the future and wants a better life. There are no tremors or other alcohol withdrawal symptoms. Vitals are stable Mental Status Examination Appearance: Disheveled Consciousness: Alert Orientation: x4 Motor Activity: Other (no motor abnormalities noted) Speech: Unremarkable Language: Adequate Fund of Knowledge: Adequate Attention and Concentration: Adequate Memory: Unremarkable Mood: Other (remains a little dysphoric) Affect: Blunt Thought Process & Associations: Intact Thought Content: Appropriate Hallucination Type: Auditory (last night) Delusion Type: None Suicidal Ideation: No Suicidal Plan: No Suicidal Intention: No (no reported urge to hurt himself on the inpatient psychiatric unit) Homicidal Ideation: No Homicidal Plan: No Homicidal Intention: No Insight: Fair Judgment: Impulsive Results Labs Test 03/31/17 16:57 04/01/17 09:53 Prothrombin Time 9.7 SEC Prothromb Time International Ratio 1.0 RATIO White Blood Count 5.2 TH/MM3 Red Blood Count 3.87 MIL/MM3 Hemoglobin 12.9 GM/DL Hematocrit 37.4 % Mean Corpuscular Volume 96.8 FL Mean Corpuscular Hemoglobin 33.3 PG Mean Corpuscular Hemoglobin Concent 34.4 % Red Cell Distribution Width 15.6 % Platelet Count 118 TH/MM3 Mean Platelet Volume 8.2 FL Neutrophils (%) (Auto) 44.6 % Lymphocytes (%) (Auto) 35.2 % Monocytes (%) (Auto) 15.3 % Eosinophils (%) (Auto) 4.1 % Basophils (%) (Auto) 0.8 % Neutrophils # (Auto) 2.3 TH/MM3 Lymphocytes # (Auto) 1.8 TH/MM3 Monocytes # (Auto) 0.8 TH/MM3 Eosinophils # (Auto) 0.2 TH/MM3 Basophils # (Auto) 0.0 TH/MM3 CBC Comment DIFF FINAL Differential Comment Blood Urea Nitrogen 16 MG/DL Creatinine 0.95 MG/DL Random Glucose 92 MG/DL Total Protein 7.3 GM/DL Albumin 2.7 GM/DL Calcium Level 9.5 MG/DL Alkaline Phosphatase 71 U/L Aspartate Amino Transf (AST/SGOT) 64 U/L Alanine Aminotransferase (ALT/SGPT) 59 U/L Total Bilirubin 0.3 MG/DL Sodium Level 137 MEQ/L Potassium Level 4.0 MEQ/L Chloride Level 102 MEQ/L Carbon Dioxide Level 29.0 MEQ/L Anion Gap 6 MEQ/L Estimat Glomerular Filtration Rate 102 ML/MIN Vitals/IOs Vital Signs Date Time Temp Pulse Resp B/P (MAP) Pulse Ox O2 Delivery O2 Flow Rate FiO2 04/01/17 06:24 98.5 16 16 122/86 (98) 97 03/29/17 18:11 Room Air Assessment & Plan Problem List: (1) Adjustment disorder with mixed anxiety and depressed mood ICD Codes: F43.23 - Adjustment disorder with mixed anxiety and depressed mood (2) Alcohol dependence ICD Codes: F10.20 - Alcohol dependence, uncomplicated Assessment & Plan Continue current treatment plan Justification for Cont. Inpt. Patient would decompensate in a less restrictive setting Request HC Surrog/Guard Advoc?: No Martínez Gasca DO Apr 01, 2017 13:40
[2017-04-01 18:29] VITALS: BP 136/98; PULSE 87; RESP 18; TEMP 98.9; O2SAT 97
[2017-04-01] MEDS: REMOVE OLD NICOTINE PATCH T-DERMAL SCH (21:00)
[2017-04-01] MEDS: BENZOCAINE 7.5% ORAL GEL 9.4 GM TUBE OROPHARYNG PRN (22:16)
[2017-04-01] MEDS: QUEtiapine FUMARATE 100 MG TAB PO SCH (22:17)
[2017-04-01] MEDS: ACETAMINOPHEN 325 MG TAB PO PRN (22:22)
[2017-04-01] MEDS: cloNIDine HCL 0.1 MG TAB PO PRN (22:29)
[2017-04-01 22:30] VITALS: BP 196/115; PULSE 68; RESP 18
[2017-04-02 05:46] VITALS: BP 133/65; PULSE 72; RESP 16; TEMP 97.9; O2SAT 94
[2017-04-02] MEDS: AMOXICILLIN/CLAVULANATE K 500 MG TAB PO SCH ×3 (06:00→22:00)
[2017-04-02] MEDS: LIDOCAINE VISCOUS 2% SOLN 15 ML UDC SWISH-SPIT SCH ×3 (06:40→17:00)
[2017-04-02] MEDS: NICOTINE 21 MG/24 HR PATCH T-DERMAL SCH (10:01)
[2017-04-02] MEDS: FOLIC ACID 1 MG TAB PO SCH (10:01)
[2017-04-02] MEDS: THIAMINE HCL 100 MG TAB PO SCH (10:01)
[2017-04-02] MEDS: MULTIVITAMIN TAB PO SCH (10:01)
[2017-04-02] MEDS ORDERED: LISINOPRIL 5 MG TAB PO ONE (11:00)
[2017-04-02] MEDS: ACETAMINOPHEN 325 MG TAB PO PRN ×2 (12:31→21:58)
--- NOTE | 2017-04-02 12:32 | HHI.PYPN ---
Subjective Chief Complaint: Depression, SI Remarks Patient was seen and case discussed with nursing. Patient notes an improvement in mood today. He denies suicidal or homicidal ideation intent or plan. He is the goal-directed and is glad to be applying for Medicaid and to get care for his teeth. Eating and sleeping well on the unit. More hopeful Mental Status Examination Appearance: Disheveled Consciousness: Alert Orientation: x4 Motor Activity: Other (no motor abnormalities noted) Speech: Unremarkable Language: Adequate Fund of Knowledge: Adequate Attention and Concentration: Adequate Memory: Unremarkable Mood: Other (remains a little dysphoric) Affect: Blunt Thought Process & Associations: Intact Thought Content: Appropriate Hallucination Type: Auditory (last night) Delusion Type: None Suicidal Ideation: No Suicidal Plan: No Suicidal Intention: No (no reported urge to hurt himself on the inpatient psychiatric unit) Homicidal Ideation: No Homicidal Plan: No Homicidal Intention: No Insight: Fair Judgment: Impulsive Results Vitals/IOs Vital Signs Date Time Temp Pulse Resp B/P (MAP) Pulse Ox O2 Delivery O2 Flow Rate FiO2 04/02/17 05:46 97.9 72 16 133/65 (87) 94 03/29/17 18:11 Room Air Intake and Output 04/02/17 04/02/17 04/03/17 08:00 16:00 00:00 Intake Total 480 ml Balance 480 ml Assessment & Plan Problem List: (1) Adjustment disorder with mixed anxiety and depressed mood ICD Codes: F43.23 - Adjustment disorder with mixed anxiety and depressed mood (2) Alcohol dependence ICD Codes: F10.20 - Alcohol dependence, uncomplicated Assessment & Plan Continue current treatment plan Justification for Cont. Inpt. Patient will decompensate in a less restrictive setting Request HC Surrog/Guard Advoc?: No Martínez Gasca DO Apr 02, 2017 12:32
--- NOTE | 2017-04-02 13:08 | HHI.PR ---
Subjective Remarks Follow-up on patient with dental abscess. Patient seen and examined. Patient states his eating was much improved with use of the Magic mouthwash. Reports episode yesterday afternoon he was sitting in the day room watching TV when he developed sudden onset headache, dizziness and decreased sensation in his feet. He alerted the staff blood pressure measurement was obtained showing BP 196/ 115. He was given a dose of clonidine. Patient states he has these episodes from time to time. Objective Vitals Vital Signs Date Time Temp Pulse Resp B/P (MAP) Pulse Ox O2 Delivery O2 Flow Rate FiO2 04/02/17 05:46 97.9 72 16 133/65 (87) 94 04/01/17 22:30 68 18 196/115 (142) 04/01/17 18:29 98.9 87 18 136/98 (111) 97 I/O 04/01/17 04/01/17 04/01/17 04/02/17 04/02/17 04/02/17 07:00 15:00 23:00 07:00 15:00 23:00 Intake Total 480 ml 720 ml Balance 480 ml 720 ml Intake Oral 480 ml 720 ml Result Diagram: 04/01/17 0953 04/01/17 0953 Imaging Last Impressions Chest X-Ray 03/30/17 0000 Signed Impressions: Service Date/Time: March 19:52 - CONCLUSION: No acute disease. Mateo Amaro MD Head CT 03/28/17 1536 Signed Impressions: Service Date/Time: Tuesday, March 28, 2017 16:12 - CONCLUSION: Normal examination. Abelardo Everett Jr., MD Objective Remarks GENERAL: This is a well-nourished, well-developed -[place] male patient , in no apparent distress. Awake and alert. Lying in bed. SKIN: Cool and dry. HEAD: Atraumatic. Normocephalic. EYES: Extraocular motions intact. No scleral icterus. No injection or drainage. ENT: Nose without bleeding or purulent drainage. Airway patent. Extremely poor dentition noted. NECK: Trachea midline. CARDIOVASCULAR: Regular rate and rhythm without murmurs, gallops, or rubs. RESPIRATORY: Fair air entry. Clear to auscultation. GASTROINTESTINAL: Abdomen soft, non-tender, nondistended. MUSCULOSKELETAL: Extremities without clubbing, cyanosis, or edema. NEUROLOGICAL: Awake and alert. Cranial nerves II through XII grossly intact. Motor and sensory grossly intact bilateral upper and lower extremities. No focal neurologic findings appreciated. Normal speech. Medications and IVs Current Medications Medications (Trade) Dose Ordered Sig/Ana Cristina Route Start Time Stop Time Status Last Admin (Romazicon Inj) 0.2 mg Q1M PRN IV PUSH 03/28/17 20:00 (Ativan) 1 mg Q4H PRN PO 03/28/17 20:00 03/29/17 03:09 (Ativan Inj) 1 mg Q4H PRN IV PUSH 03/28/17 20:00 (Ativan) 2 mg Q2H PRN PO 03/28/17 20:00 03/29/17 22:25 (Ativan Inj) 2 mg Q2H PRN IV PUSH 03/28/17 20:00 (Ativan Inj) 2 mg Q1H PRN IV PUSH 03/28/17 20:00 (Ativan Inj) 2 mg Q15M PRN IV PUSH 03/28/17 20:00 (Tylenol) 650 mg Q4H PRN PO 03/29/17 20:45 04/02/17 12:31 (Milk Of Magnesia Liq) 30 ml DAILY PRN PO 03/29/17 20:45 (Mag-Al Plus Susp Liq) 30 ml Q6H PRN PO 03/29/17 20:45 04/02/17 10:57 (Habitrol 21 Mg Patch.24 Hr) 1 patch DAILY T-DERMAL 03/30/17 09:00 04/02/17 10:01 Miscellaneous Information 1 HS T-DERMAL 03/29/17 21:00 03/30/17 21:13 (Atarax) 50 mg Q6H PRN PO 03/30/17 12:00 (Vitamin B1) 100 mg DAILY PO 03/31/17 09:00 04/02/17 10:01 (Folate) 1 mg DAILY PO 03/31/17 09:00 04/02/17 10:01 (Theragran) 1 tab DAILY PO 03/31/17 09:00 04/02/17 10:01 (Augmentin) 500 mg Q8HR PO 03/30/17 22:00 04/02/17 12:31 (Catapres) 0.1 mg Q6H PRN PO 03/30/17 15:45 04/01/17 22:29 (Baby Orajel 7.5% Oral Gel) 1 applic Q6H PRN OROPHARYNG 03/31/17 12:15 04/01/17 22:16 (SEROquel) 150 mg Taper HS PO 03/31/17 21:00 04/12/17 20:59 04/01/17 22:17 (Xylocaine 2% Viscous) 15 ml TIDAC SWISH-SPIT 03/31/17 17:00 04/02/17 10:56 (Diane Neb) 1 ampule Q4HR NEB PRN NEB 03/31/17 14:45 (Prinivil) 5 mg DAILY PO 04/03/17 09:00 A/P Assessment and Plan 51-year-old -[place] male with past medical history significant for hypertension and history of seizure September 04 of last year who presented to [facility] ED under [place] act for suicidal ideation and has been admitted to the inpatient psychiatric unit. Hospitalist services have been consulted for medical management. Suicidal ideation, under [place] act Depression Medical management per psychiatric team Uncontrolled HTN BP 196/115 last night. Better this am 133/65. Start on Lisinopril 5mg daily Clonidine prn with parameters Continue to monitor BP Dental abscess Extremely poor dentition Continue Augmentin Continue soft diet with lidocaine viscous used prior to meals Recommend patient follow-up with dentist as outpatient Monitor COPD exacerbation, resolved Ongoing tobaccoism Chest x-ray unremarkable, images reviewed by me [place] as needed Continue to monitor respiratory status Discussed smoking cessation History of alcohol withdrawal seizure Reviewed medical records on the chart from [facility]. Patient hospitalized for alcohol withdrawal seizure in August of last year. Echocardiogram 09/05/16 with EF of 60-65%. No recent seizure activity Seizure precautions Alcohol abuse [facility] protocol Monitor for signs and symptoms of withdrawal Thiamine/folate/multivitamin daily Transaminitis Suspect secondary to alcohol abuse LFTs trending down Avoid hepatotoxic agents Thrombocytopenia slight trend upwards No active bleeding Continue to monitor, repeat CBC for tomorrow B12 and folate levels within normal limits, check MMA DVT prophylaxis Patient is ambulatory Che Pierce Apr 02, 2017 13:08
[2017-04-02 18:52] VITALS: BP 134/77; PULSE 78; RESP 16; TEMP 98; O2SAT 99
[2017-04-02] MEDS: REMOVE OLD NICOTINE PATCH T-DERMAL SCH (21:00)
[2017-04-02] MEDS: LACTOBACILLUS ACIDOPHILUS TAB PO SCH (21:00)
[2017-04-02] MEDS: QUEtiapine FUMARATE 100 MG TAB PO SCH (21:59)
[2017-04-03 06:00] VITALS: BP 130/78; PULSE 84; RESP 18; TEMP 98.8; O2SAT 100
[2017-04-03] MEDS: AMOXICILLIN/CLAVULANATE K 500 MG TAB PO SCH ×3 (06:32→22:00)
[2017-04-03] MEDS: LIDOCAINE VISCOUS 2% SOLN 15 ML UDC SWISH-SPIT SCH ×3 (06:33→16:52)
--- NOTE | 2017-04-03 08:32 | HHI.PYPN ---
Subjective Chief Complaint: Depression, SI Remarks Patient seen and examined with nurse. Chart reviewed. Case discussed with nursing staff. No behavioral issues noted. On my examination today, the patient says that he is "feeling a whole lot better, safer, stronger." He does note that he continues to struggle with daytime anxiety and racing thoughts. He reports vague audiovisual hallucinations but notes that he has "always heard shit, always seen shit." He denies any SI. Denies any side effects from medications. Agreeable to adding daytime doses of Seroquel to try to manage ongoing symptoms. No physical complaints besides dental pain. Review of Systems ROS Limitations: Psychotic Except as stated in HPI: all other systems reviewed are Neg Mental Status Examination Appearance: Appropriate Consciousness: Alert Orientation: x4 Motor Activity: Other (no abnormal motor movements noted) Speech: Unremarkable Language: Adequate Fund of Knowledge: Adequate Attention and Concentration: Adequate Memory: Unremarkable Mood: Other (mood is improving) Affect: Blunt (more reactive) Thought Process & Associations: Intact Thought Content: Appropriate Hallucination Type: Auditory (vague, noncommand) Delusion Type: None Suicidal Ideation: No Suicidal Plan: No Suicidal Intention: No Homicidal Ideation: No Homicidal Plan: No Homicidal Intention: No Insight: Fair Judgment: Adequate (fair) Results Labs Labs reviewed Vitals/IOs Vital Signs Date Time Temp Pulse Resp B/P (MAP) Pulse Ox O2 Delivery O2 Flow Rate FiO2 04/03/17 06:00 98.8 84 18 130/78 (95) 100 Intake and Output 04/03/17 04/03/17 04/04/17 08:00 16:00 00:00 Intake Total 240 ml Balance 240 ml Assessment & Plan Problem List: (1) Adjustment disorder with mixed anxiety and depressed mood ICD Codes: F43.23 - Adjustment disorder with mixed anxiety and depressed mood (2) Alcohol dependence ICD Codes: F10.20 - Alcohol dependence, uncomplicated Assessment & Plan Add Seroquel 50 mg daily and continue nighttime dose as ordered. Hospitalist input noted and appreciated. Continue to monitor on the inpatient unit. Continue other medications and care as ordered. Justification for Cont. Inpt. Med changes. Risk for decompensation in less restrictive environment. Discharge Planning Pending psychiatric stabilization. I anticipate discharge middle or end of this week. Request HC Surrog/Guard Advoc?: No Andres Dempsey MD Apr 03, 2017 08:32
[2017-04-03] MEDS: FOLIC ACID 1 MG TAB PO SCH (08:53)
[2017-04-03] MEDS: LACTOBACILLUS ACIDOPHILUS TAB PO SCH ×2 (08:53→21:00)
[2017-04-03] MEDS: LISINOPRIL 5 MG TAB PO SCH (08:53)
[2017-04-03] MEDS: THIAMINE HCL 100 MG TAB PO SCH (08:53)
[2017-04-03] MEDS: MULTIVITAMIN TAB PO SCH (08:53)
[2017-04-03] MEDS: NICOTINE 21 MG/24 HR PATCH T-DERMAL SCH (09:00)
[2017-04-03] MEDS: QUEtiapine FUMARATE 25 MG TAB PO SCH (09:00)
--- NOTE | 2017-04-03 13:59 | HHI.PR ---
Subjective Remarks Follow-up patient with dental pain, uncontrolled hypertension. Patient seen and examined. Patient states he feels well today. Continues to use the Magic mouthwash before meals with good results and has been able to increase his oral consumption significantly. States its the first time he has felt full in quite some time. No recurrent episode of headache and dizziness. No new medical complaints. Objective Vitals Vital Signs Date Time Temp Pulse Resp B/P (MAP) Pulse Ox O2 Delivery O2 Flow Rate FiO2 04/03/17 06:00 98.8 84 18 130/78 (95) 100 04/02/17 18:52 98.0 78 16 134/77 (96) 99 I/O 04/02/17 04/02/17 04/02/17 04/03/17 04/03/17 04/03/17 07:00 15:00 23:00 07:00 15:00 23:00 Intake Total 720 ml 240 ml 240 ml Balance 720 ml 240 ml 240 ml Intake Oral 720 ml 240 ml 240 ml Result Diagram: 04/01/17 0953 04/01/17 0953 Imaging Last Impressions Chest X-Ray 03/30/17 0000 Signed Impressions: Service Date/Time: March 19:52 - CONCLUSION: No acute disease. Mateo Amaro MD Head CT 03/28/17 1536 Signed Impressions: Service Date/Time: Tuesday, March 28, 2017 16:12 - CONCLUSION: Normal examination. Abelardo Everett Jr., MD Objective Remarks GENERAL: This is a well-nourished, well-developed -[place] male patient , in no apparent distress. Awake and alert. Lying in bed. SKIN: Cool and dry. HEAD: Atraumatic. Normocephalic. EYES: Extraocular motions intact. No scleral icterus. No injection or drainage. ENT: Nose without bleeding or purulent drainage. Airway patent. Extremely poor dentition noted. NECK: Trachea midline. CARDIOVASCULAR: Regular rate and rhythm without murmurs, gallops, or rubs. RESPIRATORY: Fair air entry. Clear to auscultation. GASTROINTESTINAL: Abdomen soft, non-tender, nondistended. MUSCULOSKELETAL: Extremities without clubbing, cyanosis, or edema. NEUROLOGICAL: Awake and alert. Cranial nerves II through XII grossly intact. Motor and sensory grossly intact bilateral upper and lower extremities. No focal neurologic findings appreciated. Normal speech. Medications and IVs Current Medications Medications (Trade) Dose Ordered Sig/Ana Cristina Route Start Time Stop Time Status Last Admin (Romazicon Inj) 0.2 mg Q1M PRN IV PUSH 03/28/17 20:00 (Ativan) 1 mg Q4H PRN PO 03/28/17 20:00 03/29/17 03:09 (Ativan Inj) 1 mg Q4H PRN IV PUSH 03/28/17 20:00 (Ativan) 2 mg Q2H PRN PO 03/28/17 20:00 03/29/17 22:25 (Ativan Inj) 2 mg Q2H PRN IV PUSH 03/28/17 20:00 (Ativan Inj) 2 mg Q1H PRN IV PUSH 03/28/17 20:00 (Ativan Inj) 2 mg Q15M PRN IV PUSH 03/28/17 20:00 (Tylenol) 650 mg Q4H PRN PO 03/29/17 20:45 04/02/17 21:58 (Milk Of Magnesia Liq) 30 ml DAILY PRN PO 03/29/17 20:45 (Mag-Al Plus Susp Liq) 30 ml Q6H PRN PO 03/29/17 20:45 04/02/17 10:57 (Habitrol 21 Mg Patch.24 Hr) 1 patch DAILY T-DERMAL 03/30/17 09:00 04/02/17 10:01 Miscellaneous Information 1 HS T-DERMAL 03/29/17 21:00 03/30/17 21:13 (Atarax) 50 mg Q6H PRN PO 03/30/17 12:00 04/02/17 21:58 (Vitamin B1) 100 mg DAILY PO 03/31/17 09:00 04/03/17 08:53 (Folate) 1 mg DAILY PO 03/31/17 09:00 04/03/17 08:53 (Theragran) 1 tab DAILY PO 03/31/17 09:00 04/03/17 08:53 (Augmentin) 500 mg Q8HR PO 03/30/17 22:00 04/09/17 21:59 04/03/17 06:32 (Catapres) 0.1 mg Q6H PRN PO 03/30/17 15:45 04/01/17 22:29 (Baby Orajel 7.5% Oral Gel) 1 applic Q6H PRN OROPHARYNG 03/31/17 12:15 04/01/17 22:16 (SEROquel) 200 mg Taper HS PO 03/31/17 21:00 04/12/17 20:59 04/02/17 21:59 (Xylocaine 2% Viscous) 15 ml TIDAC SWISH-SPIT 03/31/17 17:00 04/03/17 10:51 (Duoneb Neb) 1 ampule Q4HR NEB PRN NEB 03/31/17 14:45 (Prinivil) 5 mg DAILY PO 04/03/17 09:00 04/03/17 08:53 (Lactinex) 1 tab Q12HR PO 04/02/17 21:00 04/03/17 08:53 (SEROquel) 50 mg DAILY PO 04/03/17 09:00 04/03/17 09:00 A/P Assessment and Plan 51-year-old -[place] male with past medical history significant for hypertension and history of seizure September 04 of last year who presented to [facility] ED under [place] act for suicidal ideation and has been admitted to the inpatient psychiatric unit. Hospitalist services have been consulted for medical management. Suicidal ideation, under [place] act Depression Medical management per psychiatric team Uncontrolled HTN BP 196/115, improved Continue on lisinopril 5 mg daily Clonidine prn with parameters Continue to monitor BP Dental abscess Extremely poor dentition Continue Augmentin Continue soft diet with lidocaine viscous used prior to meals Recommend patient follow-up with dentist as outpatient Monitor COPD exacerbation, resolved Ongoing tobaccoism Chest x-ray unremarkable, images reviewed by me Mon[place] as needed Continue to monitor respiratory status Discussed smoking cessation History of alcohol withdrawal seizure Reviewed medical records on the chart from [facility]. Patient hospitalized for alcohol withdrawal seizure in August of last year. Echocardiogram 09/05/16 with EF of 60-65%. No recent seizure activity Seizure precautions Alcohol abuse [facility] protocol Monitor for signs and symptoms of withdrawal Thiamine/folate/multivitamin daily Transaminitis Suspect secondary to alcohol abuse LFTs trending down Avoid hepatotoxic agents Thrombocytopenia slight trend upwards No active bleeding B12 and folate levels within normal limits, check MMA DVT prophylaxis Patient is ambulatory Patient appears stable from a hospital standpoint. We will sign off for now. Please reconsult if needed. Che Pierce Apr 03, 2017 13:59
[2017-04-03] MEDS: ACETAMINOPHEN 325 MG TAB PO PRN ×2 (17:05→22:16)
[2017-04-03] MEDS: REMOVE OLD NICOTINE PATCH T-DERMAL SCH (21:00)
[2017-04-03] MEDS: QUEtiapine FUMARATE 100 MG TAB PO SCH (22:14)
[2017-04-04] MEDS: AMOXICILLIN/CLAVULANATE K 500 MG TAB PO SCH ×3 (06:52→21:58)
[2017-04-04 08:00] VITALS: BP 115/84; PULSE 85; RESP 18; TEMP 97.8; O2SAT 99
[2017-04-04 09:20] VITALS: BP 118/58
[2017-04-04] MEDS: FOLIC ACID 1 MG TAB PO SCH (09:21)
[2017-04-04] MEDS: QUEtiapine FUMARATE 25 MG TAB PO SCH (09:21)
[2017-04-04] MEDS: MULTIVITAMIN TAB PO SCH (09:21)
[2017-04-04] MEDS: LACTOBACILLUS ACIDOPHILUS TAB PO SCH ×2 (09:21→21:00)
[2017-04-04] MEDS: LIDOCAINE VISCOUS 2% SOLN 15 ML UDC SWISH-SPIT SCH ×3 (09:21→17:13)
[2017-04-04] MEDS: LISINOPRIL 5 MG TAB PO SCH ×2 (09:21→09:32)
[2017-04-04] MEDS: THIAMINE HCL 100 MG TAB PO SCH (09:21)
[2017-04-04] MEDS: NICOTINE 21 MG/24 HR PATCH T-DERMAL SCH (09:22)
[2017-04-04] MEDS: ACETAMINOPHEN 325 MG TAB PO PRN ×2 (09:28→21:24)
--- NOTE | 2017-04-04 13:55 | HHI.PYPN ---
Subjective Chief Complaint: Depression, SI Remarks Patient seen and examined with nurse. Chart reviewed. Case discussed in treatment team. On my examination today, patient complains of feeling anxious somewhat still. Sleep remains a little bit poor. Mood is improving, and the patient denies any suicidal or homicidal ideation. Denies any side effects from medications. Agreeable to titration of Seroquel at night to assist with sleep and for further mood stabilization. No new physical complaints, and patient reports that dental pain is decreasing. Review of Systems Except as stated in HPI: all other systems reviewed are Neg Mental Status Examination Appearance: Appropriate Consciousness: Alert Orientation: x4 Motor Activity: Other (no motor abnormalities noted) Speech: Unremarkable Language: Adequate Fund of Knowledge: Adequate Attention and Concentration: Adequate Memory: Unremarkable Mood: Other (mood continues to improve) Affect: Appropriate Thought Process & Associations: Intact, Logical, Linear Thought Content: Appropriate Hallucination Type: None Delusion Type: None Suicidal Ideation: No Suicidal Plan: No Suicidal Intention: No Homicidal Ideation: No Homicidal Plan: No Homicidal Intention: No Insight: Fair Judgment: Adequate (fair) Results Labs Labs reviewed. Methylmalonic acid level pending. Vitals/IOs Vital Signs Date Time Temp Pulse Resp B/P (MAP) Pulse Ox O2 Delivery O2 Flow Rate FiO2 04/04/17 09:20 118/58 (78) 04/04/17 08:00 97.8 85 18 99 Intake and Output 04/04/17 04/04/17 04/05/17 08:00 16:00 00:00 Intake Total 360 ml Balance 360 ml Assessment & Plan Problem List: (1) Adjustment disorder with mixed anxiety and depressed mood ICD Codes: F43.23 - Adjustment disorder with mixed anxiety and depressed mood (2) Alcohol dependence ICD Codes: F10.20 - Alcohol dependence, uncomplicated Assessment & Plan Titrate nighttime dose of Seroquel to 250 mg at bedtime. Continue to monitor on the inpatient unit. Continue other medications and care as ordered. Justification for Cont. Inpt. Med changes Discharge Planning Anticipate discharge tomorrow, Monday. Plan discussed with patient, and he is in agreement with a Monday discharge. Request HC Surrog/Guard Advoc?: No Andres Dempsey MD Apr 04, 2017 13:55
[2017-04-04 17:58] VITALS: BP 174/88; PULSE 85; RESP 18; TEMP 97.4; O2SAT 98
[2017-04-04] MEDS: REMOVE OLD NICOTINE PATCH T-DERMAL SCH (21:00)
[2017-04-04] MEDS ORDERED: QUEtiapine FUMARATE 200 MG TAB PO SCH (21:00)
[2017-04-04] MEDS: BENZOCAINE 7.5% ORAL GEL 9.4 GM TUBE OROPHARYNG PRN (22:31)
[2017-04-05] MEDS: AMOXICILLIN/CLAVULANATE K 500 MG TAB PO SCH (06:00)
[2017-04-05 06:07] VITALS: BP 103/59; PULSE 74; RESP 16; TEMP 98.2
[2017-04-05] MEDS: LIDOCAINE VISCOUS 2% SOLN 15 ML UDC SWISH-SPIT SCH ×2 (08:01→11:48)
[2017-04-05] MEDS: FOLIC ACID 1 MG TAB PO SCH (09:08)
[2017-04-05] MEDS: THIAMINE HCL 100 MG TAB PO SCH (09:08)
[2017-04-05] MEDS: LACTOBACILLUS ACIDOPHILUS TAB PO SCH (09:09)
[2017-04-05] MEDS: QUEtiapine FUMARATE 25 MG TAB PO SCH (09:09)
[2017-04-05] MEDS: MULTIVITAMIN TAB PO SCH (09:09)
[2017-04-05] MEDS: LISINOPRIL 5 MG TAB PO SCH (09:09)
[2017-04-05] MEDS: NICOTINE 21 MG/24 HR PATCH T-DERMAL SCH (09:11)
[2017-04-05] MEDS ORDERED: LACT PO (11:12)
[2017-04-05] MEDS ORDERED: Amoxicil-Clavulanate PO (11:12)
[2017-04-05] MEDS ORDERED: QUET1TAB9 PO (11:12)
[2017-04-05] MEDS ORDERED: LISI-519 PO (11:12)
[2017-04-05] MEDS ORDERED: LIDO2SOL11 SWISH-SPIT (11:12)
[2017-04-05] MEDS ORDERED: SERO25TA PO (11:12)
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
--- NOTE | 2017-04-10 16:15 | PD.TTN ---
Patient Problems 1. Discharge planning 2. Medication compliance 3. Knowledge deficit 4. Lack of coping skills Progress Toward Goals Provider Present: Dr. Isha Dempsey Provider Input: 04/05/17 Discharge Today 03/31/17 patient was admitted yesterday and started on Seroquel Psychiatric Counselors Present: Tamara Aviles LCSW, Dhiraj Traylor Jr., [facility] Psych Therapist Input: 04/05/17 has been med compliant and appears improved 03/31/17 patient is new Group Spec/RT/OT/PICHARDO Present: KYLEE Eisenberg Group Spec/RT/OT/PICHARDO Input: 03/31/15 has not attended any groups yet Tamara Aviles LCSW Apr 10, 2017 16:15
== END 2017-04-05 13:55 | disposition home or self-care (01) | DRG 882 ==
LOC: NEPD 13:31 → NEDA 03-29 19:36 → H260 03-29 20:14
PROVIDERS: ADMIT Psychiatry & Neurology Psychiatry; ATTEND Psychiatry & Neurology Psychiatry
DX: F43.23 Adjustment disorder with mixed anxiety and depressed mood (principal); D69.6 Thrombocytopenia, unspecified; R45.851 Suicidal ideations; J44.1 Chronic obstructive pulmonary disease with (acute) exacerbation; R56.9 Unspecified convulsions; F10.20 Alcohol dependence, uncomplicated; Y90.8 Blood alcohol level of 240 mg/100 ml or more; K21.9 Gastro-esophageal reflux disease without esophagitis; I10 Essential (primary) hypertension; F17.210 Nicotine dependence, cigarettes, uncomplicated; F12.90 Cannabis use, unspecified, uncomplicated; K04.7 Periapical abscess without sinus; E87.6 Hypokalemia; F31.9 Bipolar disorder, unspecified; F43.10 Post-traumatic stress disorder, unspecified; K02.9 Dental caries, unspecified; R74.0 Nonspecific elevation of levels of transaminase and lactic acid dehydrogenase [LDH]; Z91.5 Personal history of self-harm; Z81.8 Family history of other mental and behavioral disorders
CPT/HCPCS: 70450; 71046; 80048; 80053; 80061; 80307; 82607; 82746; 83036; 83921; 84439; 84443; 85025; 85610; 87493; 93005; 94640; 94664; 96361; 96365; 96375; J0295; J1885; J2270; J2405; J7030

== ENCOUNTER 2017-04-17 14:52 | Emergency (ER) | payer SELFPAY ==
[~2017-04-17 14:52] MED LIST: Amoxicil-Clavulanate PO; LACT PO; LIDO2SOL11 SWISH-SPIT; LISI-519 PO; QUET1TAB9 PO; SERO25TA PO
[2017-04-17 15:04] VITALS: BP 153/100; PULSE 103; RESP 18; TEMP 97.9; O2SAT 99
[2017-04-17 16:56] LABS: AUTOMATED NEUTROPHIL # 3.3 TH/MM3 (1.8-7.7); BASOPHIL # 0.1 TH/MM3 (0-0.2); EOSINOPHIL % 0.6 % (0.0-4.0); HEMATOCRIT 39.9 % (39.0-51.0); HEMOGLOBIN 13.8 GM/DL (13.0-17.0); LYMPHOCYTE # 2.5 TH/MM3 (1.0-4.8); MEAN CELL VOLUME 97.2 FL (80.0-100.0); MEAN CORPUSCULAR HEMOGLOBIN 33.5 PG (27.0-34.0); MEAN CORPUSCULAR HGB CONC 34.4 % (32.0-36.0); MEAN PLATELET VOLUME 6.2 FL (7.0-11.0); MONO % 8.7 % (0.0-8.0); MONOCYTE # 0.6 TH/MM3 (0-0.9); NEUT % 50.7 % (16.0-70.0); PLATELET COUNT 255 TH/MM3 (150-450); RED BLOOD COUNT 4.11 MIL/MM3 (4.50-5.90); RED CELL DISTRIBUTION WIDTH 15.9 % (11.6-17.2); WHITE BLOOD COUNT 6.5 TH/MM3 (4.0-11.0)
[2017-04-17 17:14] LABS: ALBUMIN 3.3 GM/DL (3.4-5.0); AST (GOT) 29 U/L (15-37); BLOOD UREA NITROGEN 7 MG/DL (7-18); CALCIUM 8.4 MG/DL (8.5-10.1); CHLORIDE 108 MEQ/L (98-107); CREATININE 1.05 MG/DL (0.60-1.30); GLOMERULAR FILTRATION RATE 91 ML/MIN (>89); GLUCOSE,RANDOM 70 MG/DL (74-106); SODIUM (NA) 143 MEQ/L (136-145)
[2017-04-17 17:15] LABS: ALT (GPT) 25 U/L (12-78)
[2017-04-17 17:17] LABS: ALKALINE PHOSPHATASE 70 U/L (45-117); TOTAL BILIRUBIN ADULT 0.2 MG/DL (0.2-1.0); TOTAL PROTEIN 8.1 GM/DL (6.4-8.2)
[2017-04-17 17:56] VITALS: BP 153/95; PULSE 74; RESP 18; O2SAT 97
--- NOTE | 2017-04-17 18:28 | PD ---
HPI Chief Complaint: Psychiatric Symptoms Time Seen by Provider: 17:59 Travel History International Travel<30 days: No Contact w/Intl Traveler<30days: No Traveled to known affect area: No History of Present Illness HPI 51-year-old male presents to the emergency department under Moran act. According to law enforcement report "Vladimir is highly intoxicated. Vladimir stated he wanted to end his life. Vladimir is very depressed." On my evaluation the patient states that he is suicidal and does not have a current plan. In the past he has thought about using a razor or knife to kill himself, but has not contemplated a plan at this time. He denies suicidal attempts. Not homicidal ideations. Reports hearing voices in his head that tell him to kill himself and do bad things. He he says that he is tired of living and ready to . Reports smoking marijuana. Denies other illicit drug use. Reports alcohol use. No known aggravating or relieving factors. Duration unknown. Onset unknown. Symptoms are moderate to severe in severity. History of bipolar disorder. Says he has chronic medical problems and is supposed to be taking medications but ran out of them, but cannot verify what chronic medical problems he has and what medications he supposed be taking. He denies emergent medical complaints at this time. Denies chest pain, shortness breath, abdominal pain, nausea, vomiting, change in urine or stool. No known allergies. No primary care provider. No other modifying factors or associated signs and symptoms. PFSH Past Medical History Bipolar Disorder: Yes Cancer: No Cardiovascular Problems: No Diabetes: No GERD: Yes Headaches: Yes Hypertension: Yes Psychiatric: Yes Seizures: Yes ?: Not Social History Alcohol Use: Yes Tobacco Use: Yes Substance Use: Yes Allergies-Medications (Allergen,Severity, Reaction): Coded Allergies: No Known Allergies (Unverified , 03/28/17) Reported Meds & Prescriptions Reported Meds & Active Scripts Active Acidophilus/l-Sporogenes (Lactobacillus Acidophilus) 35 Million Cell-25 Million Cell Tab 1 Tab PO Q12HR 7 Days Lidocaine Viscous 2% Liq 2 % Liq 15 Ml SWISH-SPIT TIDAC 15 Days Seroquel (Quetiapine Fumarate) 25 Mg Tab 50 Mg PO DAILY 15 Days Quetiapine (Quetiapine Fumarate) 200 Mg Tab 250 Mg PO HS 15 Days Lisinopril 5 Mg Tab 5 Mg PO DAILY 15 Days [Amoxicil-Clavulanate] 500 MG Tab 500 Mg PO Q8HR 7 Days Continue Augmentin until you can see a dentist for further instructions. See a dentist within the next week. Review of Systems Except as stated in HPI: all other systems reviewed are Neg Physical Exam Narrative GENERAL: Well-nourished, well-developed black male patient, in no acute distress SKIN: Warm and dry. HEAD: Atraumatic. Normocephalic. EYES: Pupils equal and round. ENT: Mucosa pink and moist. NECK: Supple. Trachea midline. CARDIOVASCULAR: Regular rate and rhythm. No murmur appreciated. RESPIRATORY: No accessory muscle use. Clear to auscultation. Breath sounds equal bilaterally. GASTROINTESTINAL: Abdomen soft, non-tender, nondistended. Hepatic and splenic margins not palpable. Bowel sounds are active 4 quadrants. MUSCULOSKELETAL: No obvious deformities. No clubbing. No cyanosis. No edema. NEUROLOGICAL: Awake and alert. Oriented 3. No obvious cranial nerve deficits. Motor grossly within normal limits. Normal speech. Moves all extremities. 5/5 strength to all extremities. PSYCHIATRIC: No delusional thought processes. No hallucinations. Data Data Last Documented VS Vital Signs Date Time Temp Pulse Resp B/P (MAP) Pulse Ox O2 Delivery O2 Flow Rate FiO2 04/17/17 17:56 74 18 153/95 (114) 97 Room Air 04/17/17 15:04 97.9 Orders Orders Complete Blood Count With Diff (04/17/17 16:14) Comprehensive Metabolic Panel (04/17/17 16:14) Psych Screen (04/17/17 16:14) Thyroid Stimulating Hormone (04/17/17 17:23) Drug Screen, Random Urine (04/17/17 17:23) Alcohol (Ethanol) (04/17/17 17:23) Salicylates (Aspirin) (04/17/17 17:23) Tylenol (Acetaminophen) (04/17/17 17:23) Labs Laboratory Tests Test 04/17/17 16:28 White Blood Count 6.5 TH/MM3 Red Blood Count 4.11 MIL/MM3 Hemoglobin 13.8 GM/DL Hematocrit 39.9 % Mean Corpuscular Volume 97.2 FL Mean Corpuscular Hemoglobin 33.5 PG Mean Corpuscular Hemoglobin Concent 34.4 % Red Cell Distribution Width 15.9 % Platelet Count 255 TH/MM3 Mean Platelet Volume 6.2 FL Neutrophils (%) (Auto) 50.7 % Lymphocytes (%) (Auto) 39.0 % Monocytes (%) (Auto) 8.7 % Eosinophils (%) (Auto) 0.6 % Basophils (%) (Auto) 1.0 % Neutrophils # (Auto) 3.3 TH/MM3 Lymphocytes # (Auto) 2.5 TH/MM3 Monocytes # (Auto) 0.6 TH/MM3 Eosinophils # (Auto) 0.0 TH/MM3 Basophils # (Auto) 0.1 TH/MM3 CBC Comment DIFF FINAL Differential Comment Blood Urea Nitrogen 7 MG/DL Creatinine 1.05 MG/DL Random Glucose 70 MG/DL Total Protein 8.1 GM/DL Albumin 3.3 GM/DL Calcium Level 8.4 MG/DL Alkaline Phosphatase 70 U/L Aspartate Amino Transf (AST/SGOT) 29 U/L Alanine Aminotransferase (ALT/SGPT) 25 U/L Total Bilirubin 0.2 MG/DL Sodium Level 143 MEQ/L Potassium Level 4.0 MEQ/L Chloride Level 108 MEQ/L Carbon Dioxide Level 25.0 MEQ/L Anion Gap 10 MEQ/L Estimat Glomerular Filtration Rate 91 ML/MIN MDM Medical Decision Making Medical Screen Exam Complete: Yes Emergency Medical Condition: Yes Medical Record Reviewed: Yes Differential Diagnosis Alcohol intoxication, suicidal ideation, suicidal threat, bipolar disorder, depression, medical clearance for psychiatric admission Narrative Course Patient presents under a Moran act. Physical examination and vital signs are essentially unremarkable. Patient has no medical complaints to report. Psych screen has been ordered. If the laboratory results are unremarkable, the patient will be medically cleared for psychiatric evaluation and disposition. 1828: Blood glucose 70. Patient given orange juice. Diagnosis Primary Impression: Medical clearance for psychiatric admission Condition: Stable Marcy Michael Apr 17, 2017 18:28
[2017-04-17 19:35] LABS: ACETAMINOPHEN LESS THAN 2.0 MCG/ML (10.0-30.0)
[2017-04-18 02:12] VITALS: BP 147/82; PULSE 94; RESP 18; O2SAT 97
[2017-04-18 10:10] VITALS: BP 168/102; PULSE 69; RESP 20
--- NOTE | 2017-04-18 10:48 | PD ---
Physical Exam Time Seen by Provider: 10:[address] Valle has evaluated the patient, lifted Moran act and cleared the patient for discharge. Data Data Last Documented VS Vital Signs Date Time Temp Pulse Resp B/P (MAP) Pulse Ox O2 Delivery O2 Flow Rate FiO2 04/18/17 10:10 69 20 168/102 (124) 04/18/17 02:12 97 Room Air 04/17/17 15:04 97.9 Orders Orders Complete Blood Count With Diff (04/17/17 16:14) Comprehensive Metabolic Panel (04/17/17 16:14) Psych Screen (04/17/17 16:14) Thyroid Stimulating Hormone (04/17/17 17:23) Drug Screen, Random Urine (04/17/17 17:23) Alcohol (Ethanol) (04/17/17 17:23) Salicylates (Aspirin) (04/17/17 17:23) Tylenol (Acetaminophen) (04/17/17 17:23) Diet Regular Basic (04/17/17 Dinner) Diet Regular Basic (04/18/17 Breakfast) Diet Regular Basic (04/18/17 Lunch) Labs Laboratory Tests Test 04/17/17 16:28 04/17/17 16:30 White Blood Count 6.5 TH/MM3 Red Blood Count 4.11 MIL/MM3 Hemoglobin 13.8 GM/DL Hematocrit 39.9 % Mean Corpuscular Volume 97.2 FL Mean Corpuscular Hemoglobin 33.5 PG Mean Corpuscular Hemoglobin Concent 34.4 % Red Cell Distribution Width 15.9 % Platelet Count 255 TH/MM3 Mean Platelet Volume 6.2 FL Neutrophils (%) (Auto) 50.7 % Lymphocytes (%) (Auto) 39.0 % Monocytes (%) (Auto) 8.7 % Eosinophils (%) (Auto) 0.6 % Basophils (%) (Auto) 1.0 % Neutrophils # (Auto) 3.3 TH/MM3 Lymphocytes # (Auto) 2.5 TH/MM3 Monocytes # (Auto) 0.6 TH/MM3 Eosinophils # (Auto) 0.0 TH/MM3 Basophils # (Auto) 0.1 TH/MM3 CBC Comment DIFF FINAL Differential Comment Blood Urea Nitrogen 7 MG/DL Creatinine 1.05 MG/DL Random Glucose 70 MG/DL Total Protein 8.1 GM/DL Albumin 3.3 GM/DL Calcium Level 8.4 MG/DL Alkaline Phosphatase 70 U/L Aspartate Amino Transf (AST/SGOT) 29 U/L Alanine Aminotransferase (ALT/SGPT) 25 U/L Total Bilirubin 0.2 MG/DL Sodium Level 143 MEQ/L Potassium Level 4.0 MEQ/L Chloride Level 108 MEQ/L Carbon Dioxide Level 25.0 MEQ/L Anion Gap 10 MEQ/L Estimat Glomerular Filtration Rate 91 ML/MIN Thyroid Stimulating Hormone 3rd Gen 0.194 uIU/ML Salicylates Level 7.6 MG/DL Acetaminophen Level LESS THAN 2.0 MCG/ML Ethyl Alcohol Level 310 MG/DL Urine Opiates Screen NEG Urine Barbiturates Screen NEG Urine Amphetamines Screen NEG Urine Benzodiazepines Screen NEG Urine Cocaine Screen NEG Urine Cannabinoids Screen POS MDM Supervised Visit with DERICK: No Narrative Course Dr. Valle has evaluated the patient, lifted Dean ho and cleared the patient for discharge. Patient contracts safety. Denies suicidal or homicidal ideations. [facility]. Has friends and family for support. Patient was medically cleared by alternate provider prior to psych screening. Patient has been evaluated by psychiatry and and is now cleared for discharge. Diagnosis Primary Impression: Adjustment disorder with mixed anxiety and depressed mood Additional Impression: Alcohol intoxication Qualified Codes: F10.929 - Alcohol use, unspecified with intoxication, unspecified Referrals: MAIRA (Out patient) [facility] Primary Care Physician Psychiatrist Annabelle [facility] Patient Instructions: Abuse of Alcohol (ED), Alcohol Dependence (ED), Alcohol Intoxication (ED), General Instructions, Mood Disorders (ED) Additional Instruction: Contract safety to your self and others Stop drinking alcohol Stop doing drugs Follow-up with community support, such as Alcoholics Anonymous Follow-up with psychiatry Follow-up with primary care provider Follow-up with Reji Stewart Return to the emergency department immediately with worsening of symptoms Med/Other Pt SpecificInfo: No Change to Meds, No Meds Exist/No RX given Disposition: 01 DISCHARGE HOME Condition: Stable Marcy Michael Apr 18, 2017 10:48
--- NOTE | 2017-04-18 11:45 | PD.PSY.CON ---
Provisional Diagnosis Admission Date Magnet I. Alcohol induced mood disorder, alcohol use disorder, cannabis use disorder Magnet II. Deferred Magnet III. Seizures, hypertension History of Present Illness Service Psychiatry Consult Requested By ER team Reason for Consult Suicidal ideation Primary Care Physician Unknown HPI The patient is a 51-year-old man, domiciled his brother, unemployed, on SSI process, with psychiatric history of depression, alcohol and cannabis use disorder, previous psychiatric hospitalizations, he was just discharged from [facility] about 2 weeks ago, he was under the care of Dr. Dempsey, documentation review, he is on Seroquel 200 mg, outpatient care in [facility], medical history hypertension and seizures, who presents to the emergency department under Moran act. According to law enforcement report " Vladimir is highly intoxicated. Vladimir stated he wanted to end his life. Vladimir is very depressed." On psychiatric evaluation today the patient reports that after he was discharged he was taking his medication, he was doing okay, but his brother took his medications with him to [place] and he has not been taking his medication for about week now. Instead, he has been taking alcohol for depression. He says that he was planning to go back to [facility] was 4 another prescription but he rather got drunk. At this moment the patient reports depression, but denies suicidal and homicidal ideation, he denies visual and auditory hallucinations. He is logical, his coherent his relevant. Patient has good ego boundaries, no reality testing problems, no delusions, no paranoia. No withdrawal symptoms present. Review of Systems Constitutional: DENIES: Diaphoretic episodes, Fatigue, Fever, Weight gain, Weight loss, Chills, Dizziness, Change in appetite, Night Sweats Endocrine: DENIES: Heat/cold intolerance, Polydipsia, Polyuria, Polyphagia Eyes: DENIES: Blurred vision, Diplopia, Eye inflammation, Eye pain, Vision loss , Photosensitivity, Double Vision Ears, nose, mouth, throat: DENIES: Tinnitus, Hearing loss, Vertigo, Nasal discharge, Oral lesions, Throat pain, Hoarseness, Ear Pain, Running Nose, Epistaxis, Sinus Pain, Toothache, Odynophagia Respiratory: DENIES: Apneas, Cough, Snoring, Wheezing, Hemoptysis, Sputum production, Shortness of breath Cardiovascular: DENIES: Chest pain, Palpitations, Syncope, Dyspnea on Exertion , PND, Lower Extremity Edema, Orthopnea, Claudication Gastrointestinal: DENIES: Abdominal pain, Black stools, Bloody stools, Constipation, Diarrhea, Nausea, Vomiting, Difficulty Swallowing, Anorexia Genitourinary: DENIES: Sexual dysfunction, Urinary frequency, Urinary incontinence, Urgency, Hematuria, Dysuria, Nocturia, Penile Discharge, Testicular Pain, Testicular Swelling Musculoskeletal: DENIES: Joint pain, Muscle aches, Stiffness, Joint Swelling, Back pain, Neck pain Integumentary: DENIES: Abnormal pigmentation, Nail changes, Pruritus, Rash Hematologic/lymphatic: DENIES: Bruising, Lymphadenopathy Immunologic/allergic: DENIES: Eczema, Urticaria Neurologic: DENIES: Abnormal gait, Headache, Localized weakness, Paresthesias, Seizures, Speech Problems, Tremor, Poor Balance Psychiatric: DENIES: Anxiety, Confusion, Mood changes, Depression, Hallucinations, Agitation, Suicidal Ideation, Homicidal Ideation, Delusions Past Family Social History Coded Allergies: No Known Allergies (Unverified , 03/28/17) Active Scripts Lactobacillus Acidophilus (Acidophilus/l-Sporogenes) 35 Million Cell-25 Million Cell Tab, 1 TAB PO Q12HR for Probiotic for 7 Days, TAB 1 Refill Prov:Andres Dempsey MD 04/05/17 Lidocaine Viscous 2% Liq (Lidocaine Viscous 2% Liq) 2 % Liq, 15 ML SWISH-SPIT TIDAC for Oral pain for 15 Days, ML 1 Refill Prov:Andres Dempsey MD 04/05/17 Quetiapine (Seroquel) 25 Mg Tab, 50 MG PO DAILY for Mental Health for 15 Days, # 30 TAB 1 Refill Prov:Andres Dempsey MD 04/05/17 Quetiapine (Quetiapine) 200 Mg Tab, 250 MG PO HS for Mental Health for 15 Days, TAB 1 Refill Prov:Andres Dempsey MD 04/05/17 Lisinopril (Lisinopril) 5 Mg Tab, 5 MG PO DAILY for Blood Pressure Management for 15 Days, #15 TAB 1 Refill Prov:Andres Dempsey MD 04/05/17 [Amoxicil-Clavulanate] 500 MG TAB No Conflict Check, 500 MG PO Q8HR for Antibiotic for 7 Days, 1 Refill Continue Augmentin until you can see a dentist for further instructions. See a dentist within the next week. Prov:Andres Dempsey MD 04/05/17 Family Psych History No family psychiatric history Social History Patient was born and raised in [place], he lives in [place]'s brother, unemployed, on SSI process, he is single Patient's Strengths (min. 2) Verbal communication Physical Exam No tremors, no EPS, no withdrawal symptoms Vital Signs Vital Signs Date Time Temp Pulse Resp B/P (MAP) Pulse Ox O2 Delivery O2 Flow Rate FiO2 04/18/17 11:00 04/18/17 10:10 69 20 04/18/17 02:12 97 Room Air 04/17/17 15:04 97.9 Lab Results Test 04/17/17 16:28 04/17/17 16:30 White Blood Count 6.5 TH/MM3 Red Blood Count 4.11 MIL/MM3 Hemoglobin 13.8 GM/DL Hematocrit 39.9 % Mean Corpuscular Volume 97.2 FL Mean Corpuscular Hemoglobin 33.5 PG Mean Corpuscular Hemoglobin Concent 34.4 % Red Cell Distribution Width 15.9 % Platelet Count 255 TH/MM3 Mean Platelet Volume 6.2 FL Neutrophils (%) (Auto) 50.7 % Lymphocytes (%) (Auto) 39.0 % Monocytes (%) (Auto) 8.7 % Eosinophils (%) (Auto) 0.6 % Basophils (%) (Auto) 1.0 % Neutrophils # (Auto) 3.3 TH/MM3 Lymphocytes # (Auto) 2.5 TH/MM3 Monocytes # (Auto) 0.6 TH/MM3 Eosinophils # (Auto) 0.0 TH/MM3 Basophils # (Auto) 0.1 TH/MM3 CBC Comment DIFF FINAL Differential Comment Blood Urea Nitrogen 7 MG/DL Creatinine 1.05 MG/DL Random Glucose 70 MG/DL Total Protein 8.1 GM/DL Albumin 3.3 GM/DL Calcium Level 8.4 MG/DL Alkaline Phosphatase 70 U/L Aspartate Amino Transf (AST/SGOT) 29 U/L Alanine Aminotransferase (ALT/SGPT) 25 U/L Total Bilirubin 0.2 MG/DL Sodium Level 143 MEQ/L Potassium Level 4.0 MEQ/L Chloride Level 108 MEQ/L Carbon Dioxide Level 25.0 MEQ/L Anion Gap 10 MEQ/L Estimat Glomerular Filtration Rate 91 ML/MIN Thyroid Stimulating Hormone 3rd Gen 0.194 uIU/ML Salicylates Level 7.6 MG/DL Acetaminophen Level LESS THAN 2.0 MCG/ML Ethyl Alcohol Level 310 MG/DL Urine Opiates Screen NEG Urine Barbiturates Screen NEG Urine Amphetamines Screen NEG Urine Benzodiazepines Screen NEG Urine Cocaine Screen NEG Urine Cannabinoids Screen POS Mental Status Examination Appearance: Appropriate Consciousness: Alert Orientation: x4 Motor Activity: Normal gait Speech: Unremarkable Language: Adequate Fund of Knowledge: Adequate Attention and Concentration: Adequate Memory: Unremarkable Mood: Appropriate Affect: Appropriate Thought Process & Associations: Intact Thought Content: Appropriate Hallucination Type: None Delusion Type: None Suicidal Ideation: No Suicidal Plan: No Suicidal Intention: No Homicidal Ideation: No Homicidal Plan: No Homicidal Intention: No Insight: Adequate Judgment: Adequate Assessment & Plan Problem List: (1) Alcohol abuse with alcohol-induced mood disorder ICD Codes: F10.14 - Alcohol abuse with alcohol-induced mood disorder Assessment & Plan: On psychiatric evaluation today the patient presents with depressive symptoms in the context of continuous alcohol use. Patient was recently discharged from psychiatry in [facility], but the patient has not been compliant with medications. At this moment the patient denies suicidal and homicidal ideation, he denies visual and auditory hallucinations. Patient was recommended to engage in detox/rehabilitation and continue his outpatient psychotropic medications. Brief supportive psychotherapy provided. He does not meet criteria for involuntary psychotic admission at this moment. Moran act will be lifted. Assessment & Plan Estimated LOS: Mayank Lee MD Apr 18, 2017 11:44
== END 2017-04-18 11:15 | disposition home or self-care (01) ==
LOC: NEDAMB 14:52 → NEPJ 04-18 11:15
DX: F43.23 Adjustment disorder with mixed anxiety and depressed mood (principal); F10.929 Alcohol use, unspecified with intoxication, unspecified; F12.90 Cannabis use, unspecified, uncomplicated; I10 Essential (primary) hypertension; Z72.0 Tobacco use
CPT/HCPCS: 80053; 80307; 84443; 85025; 99284